=== PATIENT | female | born 1960 | race Caucasian/White ===

== ENCOUNTER 2018-06-10 10:35 | Emergency (ER) | payer OTHER ==
[~2018-06-10] VITALS: Ht 162.6 cm; Wt 77.1 kg
[2018-06-10] MEDS ORDERED: OLAN2.5 PO (10:47)
[2018-06-10] MEDS ORDERED: CLON.1 PO (10:47)
[2018-06-10] MEDS ORDERED: CYCL10 PO (10:48)
[2018-06-10] MEDS ORDERED: NAPR550 PO (10:49)
[2018-06-10] MEDS ORDERED: LEVSOD50 PO (10:49)
[2018-06-10] MEDS ORDERED: SUCR1 PO (10:50)
[2018-06-10] MEDS ORDERED: MIRT15 PO (10:50)
[2018-06-10] MEDS ORDERED: GABA300 PO (10:50)
[2018-06-10 12:06] LABS: BASOPHILS ABSOLUTE AUTO 0.03 K/mm3 (0.00-0.23); BASOPHILS PERCENT AUTO 0 % (0-2); EOSINOPHILS PERCENT AUTO 3 % (0-6); Hematocrit 43.9 % (33.0-51.0); Hemoglobin 14.5 g/dL (11.5-16.0); IMMATURE GRAN ABSOLUTE AUTO 0.02 K/mm3 (0.00-0.10); IMMATURE GRAN PERCENT AUTO 0 % (0-1); LYMPHOCYTES PERCENT AUTO 29 % (21-46); MONOCYTES ABSOLUTE AUTO 0.35 K/mm3 (0.16-1.47); MONOCYTES PERCENT AUTO 5 % (4-13); Mean Corpuscular HGB 31.9 pg (26.0-34.0); Mean Corpuscular Volume 97 fL (80-100); Mean Platelet Volume 9.1 fL (9.1-12.4); NEUTROPHILS ABSOLUTE AUTO 4.17 K/mm3 (1.96-9.15); NEUTROPHILS PERCENT AUTO 63 % (41-73); Platelet Count 351 K/mm3 (150-400); RDW Coefficient Variation 12.4 % (11.7-14.2); RDW Standard Deviation 44.5 fL (35.1-46.3); Red Blood Cell Count 4.55 M/mm3 (3.80-5.20); White Blood Cell Count 6.67 K/mm3 (4.00-11.30)
[2018-06-10 12:15] LABS: Alanine Aminotransfer (ALT/SGP 28 U/L (12-78); Albumin, Blood 3.5 g/dL (3.4-5.0); Albumin/Globulin Ratio 1.1 (0.8-1.8); Alk Phos 74 U/L (50-136); Anion Gap 7 mmol/L (6-16); Aspartate Aminotrans (AST/SGOT 19 U/L (12-37); Bilirubin, Total 0.5 mg/dL (0.1-1.0); Blood Urea Nitrogen 11 mg/dL (8-24); Bun/Creatinine Ratio 18.4 (12.0-20.0); CO2, Blood 23 mmol/L (21-32); Calcium, Blood 8.1 mg/dL (8.5-10.1); Chloride, Blood 112 mmol/L (98-108); Globulin, Blood 3.2 g/dL (2.2-4.0); Glomerular Filtration Rate >60 (60-); Glucose, Blood 102 mg/dL (70-99); Potassium, Blood 3.6 mmol/L (3.5-5.5); Sodium, Blood 142 mmol/L (136-145); Total Protein, Blood 6.7 g/dL (6.4-8.2)
[2018-06-10 13:57] LABS: Influenza A Negative (NEGATIVE); Influenza B Negative (NEGATIVE)
[2018-06-10] MEDS ORDERED: Loperamide2 MG PO (14:05)
[2018-06-10] MEDS ORDERED: KETO10 PO (14:05)
== END 2018-06-10 14:30 | disposition home or self-care (01) ==
LOC: ER 10:35
PROVIDERS: Physician Assistant
DX: A08.4 Viral intestinal infection, unspecified (principal); I10 Essential (primary) hypertension; E03.9 Hypothyroidism, unspecified; F17.210 Nicotine dependence, cigarettes, uncomplicated; Z79.899 Other long term (current) drug therapy
CPT/HCPCS: 80053; 85025; 87804; 96361; 96374; 99283-25; J1885; J7030

== ENCOUNTER 2018-11-23 15:30 | Emergency (ER) | payer OTHER ==
[~2018-11-23] VITALS: Ht 162.6 cm; Wt 81.7 kg
[~2018-11-23 15:30] MED LIST: CLON.1 PO; CYCL10 PO; GABA300 PO; KETO10 PO; LEVSOD50 PO; Loperamide2 MG PO; MIRT15 PO; NAPR550 PO; OLAN2.5 PO; SUCR1 PO
== END 2018-11-23 17:15 | disposition left against medical advice (07) ==
LOC: ER 15:30
DX: Z53.21 Procedure and treatment not carried out due to patient leaving prior to being seen by health care provider (principal)
CPT/HCPCS: 93005; 93010; 99283-25

== ENCOUNTER → 2020-01-02 | Outpatient (CLI) | payer OTHER ==
[2020-01-03 16:56] LABS: Adenovirus F 40/41 Not Detected (NOT DETECT); Astrovirus Not Detected (NOT DETECT); Campylobacter Sp Not Detected (NOT DETECT); Cryptosporidium Not Detected (NOT DETECT); Cyclospora Cayetanensis Not Detected (NOT DETECT); E. Coli O157 Not Detected (NOT DETECT); Entamoeba Histolytica Not Detected (NOT DETECT); Enteroaggregative E. coli-EAEC Not Detected (NOT DETECT); Enteropathogenic E. coli-EPEC Not Detected (NOT DETECT); Enterotoxigenic E. coli-ETEC Not Detected (NOT DETECT); Giardia Lamblia Not Detected (NOT DETECT); Norovirus GI/GII Not Detected (NOT DETECT); Plesiomonas Shigelloides Not Detected (NOT DETECT); Rotavirus A Not Detected (NOT DETECT); Salmonella Sp Not Detected (NOT DETECT); Sapovirus Not Detected (NOT DETECT); Shiga Toxin-prod E. coli-STEC Not Detected (NOT DETECT); Shigella/Enteroin E. coli-EIEC Not Detected (NOT DETECT); Vibrio Cholerae Not Detected (NOT DETECT); Vibrio Sp Not Detected (NOT DETECT); Yersinia Enterocolitica Not Detected (NOT DETECT)
== END | disposition home or self-care (01) ==
LOC: LAB 11:15 → LAB SHORT 11:15
PROVIDERS: Family Medicine
DX: R19.7 Diarrhea, unspecified (principal)
CPT/HCPCS: 0097U; 84376; 89055

== ENCOUNTER 2020-02-13 06:56 | Observation (INO) | payer OTHER ==
[~2020-02-13] VITALS: Ht 162.6 cm; Wt 83.4 kg
[~2020-02-13 06:56] MED LIST changes: +LEVSOD25 PO; -LEVSOD50 PO
[2020-02-13 07:46] LABS: BASOPHILS ABSOLUTE AUTO 0.03 K/mm3 (0.00-0.23); BASOPHILS PERCENT AUTO 0 % (0-2); EOSINOPHILS ABSOLUTE AUTO 0.26 K/mm3 (0.00-0.68); EOSINOPHILS PERCENT AUTO 3 % (0-6); Hematocrit 40.2 % (33.0-51.0); IMMATURE GRAN ABSOLUTE AUTO 0.02 K/mm3 (0.00-0.10); IMMATURE GRAN PERCENT AUTO 0 % (0-1); LYMPHOCYTES ABSOLUTE AUTO 2.15 K/mm3 (0.84-5.20); LYMPHOCYTES PERCENT AUTO 22 % (21-46); MONOCYTES ABSOLUTE AUTO 0.46 K/mm3 (0.16-1.47); MONOCYTES PERCENT AUTO 5 % (4-13); Mean Corpuscular HGB 31.8 pg (26.0-34.0); Mean Corpuscular HGB Conc 32.3 g/dL (31.5-36.5); Mean Corpuscular Volume 98 fL (80-100); Mean Platelet Volume 9.3 fL (9.1-12.4); NEUTROPHILS ABSOLUTE AUTO 6.81 K/mm3 (1.96-9.15); NEUTROPHILS PERCENT AUTO 70 % (41-73); Platelet Count 250 K/mm3 (150-400); RDW Coefficient Variation 13.4 % (11.7-14.2); RDW Standard Deviation 48.8 fL (35.1-46.3); Red Blood Cell Count 4.09 M/mm3 (3.80-5.20); White Blood Cell Count 9.73 K/mm3 (4.00-11.30)
[2020-02-13 08:11] LABS: Alanine Aminotransfer (ALT/SGP 145 U/L (12-78); Albumin, Blood 3.2 g/dL (3.4-5.0); Albumin/Globulin Ratio 1.1 (0.8-1.8); Alk Phos 113 U/L (50-136); Anion Gap 3 mmol/L (6-16); Aspartate Aminotrans (AST/SGOT 82 U/L (12-37); Bilirubin, Total 0.3 mg/dL (0.1-1.0); Blood Urea Nitrogen 14 mg/dL (8-24); Bun/Creatinine Ratio 23.4 (12.0-20.0); CO2, Blood 24 mmol/L (21-32); Calcium, Blood 7.7 mg/dL (8.5-10.1); Chloride, Blood 115 mmol/L (98-108); Globulin, Blood 2.8 g/dL (2.2-4.0); Glomerular Filtration Rate >60 (60-); Glucose, Blood 108 mg/dL (70-99); Potassium, Blood 3.7 mmol/L (3.5-5.5); Sodium, Blood 142 mmol/L (136-145); Troponin I 0.166 ng/mL (0.000-0.040)
[2020-02-13 10:16] LABS: Prothrombin Time Results 10.7 Sec (9.7-11.5)
--- NOTE | 2020-02-13 11:59 | NUR ---
Echocardiogram completed.
[2020-02-13] MEDS ORDERED: LATUDA20 MG PO (12:20)
--- NOTE | 2020-02-13 17:51 | NUR ---
SHIFT SUMMARY PT ALERT AND ORIENTED. VS STABLE. O2 SATS REMAIN ABOVE 90% ON RA. BP STABLE. PT DENIES ANY CP OR PRESSURE. HEPARIN GTT INFUSING PER ORDERS. PLAN TO BE NPO AT MIDNIGHT FOR ANGIOGRAM IN THE AM. PT INDEPENDENT IN THE ROOM. WILL CONTINUE TO MONITOR AND REPORT TO ONCOMING RN. CALL LIGHT IN REACH.
--- NOTE | 2020-02-13 19:29 | NUR ---
PT ALERT AND ORIENTED. PT NPO AFTER MIDNIGHT FOR SCHEDULED ANGIOGRAM. VS STABLE. O2 SAT ABOVE 92% ON RA. HEPARIN INFUSING PER EMAR. PT REPORTS TO HAVE NO CHEST PAIN AT THIS TIME. PT ABLE TO AMBULATE ON OWN IN ROOM. SHIFT REPORT GIVEN TO ONCOMING NURSE. CALL LIGHT IN REACH.
[2020-02-14 02:11] LABS: Alanine Aminotransfer (ALT/SGP 126 U/L (12-78); Albumin, Blood 3.1 g/dL (3.4-5.0); Albumin/Globulin Ratio 0.9 (0.8-1.8); Alk Phos 112 U/L (50-136); Anion Gap 4 mmol/L (6-16); Aspartate Aminotrans (AST/SGOT 43 U/L (12-37); Bilirubin, Total 0.4 mg/dL (0.1-1.0); Blood Urea Nitrogen 16 mg/dL (8-24); Bun/Creatinine Ratio 24.9 (12.0-20.0); CO2, Blood 29 mmol/L (21-32); Calcium, Blood 8.6 mg/dL (8.5-10.1); Chloride, Blood 108 mmol/L (98-108); Creatinine, Blood 0.64 mg/dL (0.40-1.00); Globulin, Blood 3.4 g/dL (2.2-4.0); Glomerular Filtration Rate >60 (60-); Glucose, Blood 160 mg/dL (70-99); Magnesium, Blood 1.8 mg/dL (1.6-2.4); Potassium, Blood 3.7 mmol/L (3.5-5.5); Sodium, Blood 141 mmol/L (136-145); Total Protein, Blood 6.5 g/dL (6.4-8.2)
--- NOTE | 2020-02-14 06:46 | NUR ---
LEFT FOR [facility]URE [facility] RN'S CAME AND TOOK PATIENT FOR PROCEDURE AT THIS TIME.
--- NOTE | 2020-02-14 07:27 | NUR ---
SHIFT SUMMARY NO ACUTE CHANGES T/O THE NIGHT. VITALS STABLE. NPO AFTER MIDNIGHT. PT DENIES C/P AND SOB. PT LEFT FOR PROCEDURE BEFORE 0600 MEDICATIONS. PT IS REQUESTING SHOWER UPON RETURING FROM PROCEDURE.
[2020-02-14 14:26] LABS: Magnesium, Blood 1.6 mg/dL (1.6-2.4); Potassium, Blood 3.1 mmol/L (3.5-5.5)
--- NOTE | 2020-02-14 17:49 | NUR ---
SHIFT SUMMARY PT ALERT AND ORIENTED. VS STABLE. O2 SATS REMAIN ABOVE 90% ON RA. HR NSR. PT DENIES ANY CP/PRESSURE. RIGHT RADIAL SITE WITH TEGADERM IN PLACE WITH NO SIGNS OF HEMATOMA, BRUISING, OR BLEEDING NOTED. ARM BOARD IN PLACE. RIGHT BRACHIAL SITE WITH TEGADERM IN PLACE WITH NO BLEEDING, HEMATOMA OR BRUISING NOTED. PT ANXIOUS THIS AFTERNOON AND DR. BARKER CALLED WITH NEW ORDERS. WILL CONTINUE TO MONITOR AND REPORT TO ONCOMING RN.
--- NOTE | 2020-02-14 18:32 | NUR ---
SHIFT REPORT PT IS ALERT AND ORIENTED. PT HAD ANGIOGRAM DONE THIS AM. R BRACHIAL SITE IS WNL. NO BRUISING OR HEMATOMA FORMATIOIN. R RADIAL SITE IS WNL. NO BRUISING OR HEMATOMA FORMATION. VS STABLE. PT ABOVE 92% ON RA. PT IS ANXIOUS T/O THE DAY. PHYSICIAN NOTIFIED. PATIENT MEDICATION PER EMAR. CALL LIGHT WITHIN REACH. WILL CONTINUE TO MONITOR.
[2020-02-15 05:04] LABS: Anion Gap 4 mmol/L (6-16); Blood Urea Nitrogen 21 mg/dL (8-24); Bun/Creatinine Ratio 31.2 (12.0-20.0); CO2, Blood 29 mmol/L (21-32); Calcium, Blood 8.3 mg/dL (8.5-10.1); Chloride, Blood 108 mmol/L (98-108); Creatinine, Blood 0.67 mg/dL (0.40-1.00); Glomerular Filtration Rate >60 (60-); Glucose, Blood 109 mg/dL (70-99); Magnesium, Blood 2.1 mg/dL (1.6-2.4); Potassium, Blood 3.4 mmol/L (3.5-5.5); Sodium, Blood 141 mmol/L (136-145)
--- NOTE | 2020-02-15 05:13 | NUR ---
SHIFT SUMMARY PT A&O; COMPLIANT W/ CARE; DENIES CP; VSS; NSR NOTED ON TELE; R RADIAL SITE W/ TEGADERM IN PLACE; ARM BOARD IN PLACE TO REMIND PT; O2 SATS >93 ON RA ON SECOND DIGIT OF R HAND; INDEPENDENT IN ROOM; AMBULATES TO BATHROOM W/ NO GAIT DISTURBANCES NOTED; PT SLEPT SEVERAL HOURS IN BETWEEN INTERVENTION; CALL LIGHT IN REACH; BED IN LOWEST POSITITION; WILL CONTINUE TO MONITOR CLOSELY UNTIL HAND OFF OT DAY SHIFT RN.
[2020-02-15] MEDS ORDERED: ASPI81CH PO (12:56)
[2020-02-15] MEDS ORDERED: LOSA25 PO (12:57)
[2020-02-15] MEDS ORDERED: METO25ER PO (13:01)
[2020-02-15] MEDS ORDERED: SPIR25 PO (13:08)
[2020-02-15] MEDS ORDERED: TORSE20 PO (13:09)
[2020-02-15] MEDS ORDERED: POTA10T PO (13:10)
--- NOTE | 2020-02-15 14:41 | NUR ---
PT DISCHARGED TO [facility] WITH DISCHARGE ORDERS. PT'S VITALS HAS BEEN STABLE FOR THE SHIFT, HRR NSR AT 70'S, SATS ABOVE 95% ON ROOMAIR, AFEBRILE. INDEPENDENT IN THE ROOM. RIGHT RADIAL AND BRACHIAL ACCESS SITE INTACT DRESSING REPLACED WITH NEW TRANSPARENT DRESSING SOME BRUISING PRESENT AROUND THE SITE. PT C/O MILD HEAD ACHE AND SOME NAUSEA AND WAS RELIEVED BY ZOFRAN AND TYLENOL. PT HAD A SHOWER PRIOR TO LEAVING. PT TO FOLLOW UP WITH PCP AND DR AGARWAL IN A WEEK. DISCHARGE TEACHING AND INSTRUCTIONS DISCLOSED WITH PT. PT SIGNED DISCHARGED CONSENT. ALL BELONGINGS SENT WITH PT. [facility] [employer] [facility] [employer]SE OPERATOR PT, PT ACCOMPANIED BY PCT FOR TRANSPORT.
== END 2020-02-15 14:33 | disposition home or self-care (01) ==
LOC: ER 06:56 → PCU 06:57
PROVIDERS: Emergency Medicine; Internal Medicine Cardiovascular Disease; ADMIT Internal Medicine
DX: R07.9 Chest pain, unspecified (principal); I11.0 Hypertensive heart disease with heart failure; I27.20 Pulmonary hypertension, unspecified; I42.9 Cardiomyopathy, unspecified; I50.31 Acute diastolic (congestive) heart failure; I42.8 Other cardiomyopathies; Z91.041 Radiographic dye allergy status; Z88.2 Allergy status to sulfonamides; Z91.018 Allergy to other foods; E03.9 Hypothyroidism, unspecified; F17.210 Nicotine dependence, cigarettes, uncomplicated; Z79.899 Other long term (current) drug therapy; Z79.82 Long term (current) use of aspirin
CPT/HCPCS: 36415; 70450; 71046; 80048; 80053; 83690; 83735; 83880; 84132; 84145; 84484; 85025; 85610; 85730; 93005; 93010; 93306; 93460; 96374; 96375; 99152; 99153; 99285-25; A9270; A9270-GY; C1769; C1894; J0171; J1170; J1200; J1644; J1720; J1940; J2250; J2405; J3010; J3475; J3490; J7030; J7040; J7512; Q9967

== ENCOUNTER 2020-05-29 07:07 | Day surgery (SDC) | payer OTHER ==
[~2020-05-29 07:07] MED LIST changes: +ASPI81CH PO; +COMBIVENT RESPIM4 G1 INH; +Gabapentin600 MG PO; +LATUDA20 MG PO; +LOSA25 PO; +METO25ER PO; +ONDA4ODT MM; +PANT40 PO; +POTA10T PO; +SPIR25 PO; +TORSE20 PO
== END 2020-05-29 22:40 | disposition home or self-care (01) ==
LOC: RAD 07:07
DX: M16.11 Unilateral primary osteoarthritis, right hip (principal); M24.851 Other specific joint derangements of right hip, not elsewhere classified
CPT/HCPCS: 20610; 73722; 77002; A9577; Q9967

== ENCOUNTER → 2020-06-18 | Outpatient (CLI) | payer OTHER | END | disposition home or self-care (01) | LOC: LAB SHORT 17:35 → LAB 17:35 | DX: J02.9 Acute pharyngitis, unspecified (principal) | CPT/HCPCS: 87081 ==

== ENCOUNTER 2020-07-19 15:44 | Emergency (ER) | payer OTHER ==
[~2020-07-19] VITALS: Ht 167.6 cm; Wt 83.9 kg
[2020-07-19 16:35] LABS: BASOPHILS ABSOLUTE AUTO 0.05 K/mm3 (0.00-0.23); BASOPHILS PERCENT AUTO 1 % (0-2); EOSINOPHILS ABSOLUTE AUTO 0.81 K/mm3 (0.00-0.68); EOSINOPHILS PERCENT AUTO 11 % (0-6); Hematocrit 50.9 % (33.0-51.0); Hemoglobin 16.6 g/dL (11.5-16.0); IMMATURE GRAN ABSOLUTE AUTO 0.01 K/mm3 (0.00-0.10); IMMATURE GRAN PERCENT AUTO 0 % (0-1); LYMPHOCYTES ABSOLUTE AUTO 2.26 K/mm3 (0.84-5.20); LYMPHOCYTES PERCENT AUTO 29 % (21-46); MONOCYTES PERCENT AUTO 5 % (4-13); Mean Corpuscular HGB 30.9 pg (26.0-34.0); Mean Corpuscular HGB Conc 32.6 g/dL (31.5-36.5); Mean Corpuscular Volume 95 fL (80-100); Mean Platelet Volume 8.9 fL (9.1-12.4); NEUTROPHILS ABSOLUTE AUTO 4.18 K/mm3 (1.96-9.15); NEUTROPHILS PERCENT AUTO 54 % (41-73); Platelet Count 311 K/mm3 (150-400); RDW Coefficient Variation 12.5 % (11.7-14.2); Red Blood Cell Count 5.37 M/mm3 (3.80-5.20); White Blood Cell Count 7.71 K/mm3 (4.00-11.30)
[2020-07-19 16:51] LABS: Alanine Aminotransfer (ALT/SGP 39 U/L (12-78); Albumin, Blood 3.9 g/dL (3.4-5.0); Albumin/Globulin Ratio 1.1 (0.8-1.8); Alk Phos 81 U/L (50-136); Anion Gap 3 mmol/L (6-16); Aspartate Aminotrans (AST/SGOT 42 U/L (12-37); Bilirubin, Total 0.5 mg/dL (0.1-1.0); Blood Urea Nitrogen 12 mg/dL (8-24); Bun/Creatinine Ratio 17.9 (12.0-20.0); CO2, Blood 27 mmol/L (21-32); Chloride, Blood 113 mmol/L (98-108); Creatinine, Blood 0.67 mg/dL (0.40-1.00); Globulin, Blood 3.6 g/dL (2.2-4.0); Glomerular Filtration Rate >60 (60-); Glucose, Blood 111 mg/dL (70-99); Potassium, Blood 4.9 mmol/L (3.5-5.5); Sodium, Blood 143 mmol/L (136-145); Total Protein, Blood 7.5 g/dL (6.4-8.2)
[2020-07-19] MEDS ORDERED: BENZ100A PO (21:35)
== END 2020-07-19 22:27 | disposition home or self-care (01) ==
LOC: ER 15:44
PROVIDERS: Emergency Medicine
DX: J20.9 Acute bronchitis, unspecified (principal); R11.0 Nausea; R19.7 Diarrhea, unspecified; E03.9 Hypothyroidism, unspecified; I11.0 Hypertensive heart disease with heart failure; I50.9 Heart failure, unspecified; F17.210 Nicotine dependence, cigarettes, uncomplicated; Z20.828 Contact with and (suspected) exposure to other viral communicable diseases; Z79.82 Long term (current) use of aspirin; Z79.899 Other long term (current) drug therapy; Z88.2 Allergy status to sulfonamides; Z91.018 Allergy to other foods; Z91.041 Radiographic dye allergy status
CPT/HCPCS: 71045; 80053; 85025; 94640; 99284-25; U0004

== ENCOUNTER 2020-08-20 03:18 | Emergency (ER) | payer OTHER ==
[~2020-08-20] VITALS: Ht 162.6 cm; Wt 81.7 kg
[~2020-08-20 03:18] MED LIST changes: +BENZ100A PO
[2020-08-20] MEDS ORDERED: DELTASONE20 MG PO (06:05)
== END 2020-08-20 06:20 | disposition home or self-care (01) ==
LOC: ER 03:18
DX: J44.1 Chronic obstructive pulmonary disease with (acute) exacerbation (principal); I11.0 Hypertensive heart disease with heart failure; I50.9 Heart failure, unspecified; E03.9 Hypothyroidism, unspecified; Z91.018 Allergy to other foods; Z88.2 Allergy status to sulfonamides; Z91.041 Radiographic dye allergy status; Z79.899 Other long term (current) drug therapy
CPT/HCPCS: 71045; 94644; 99285-25; J7512

== ENCOUNTER 2020-11-23 04:44 | Emergency (ER) | payer OTHER ==
[~2020-11-23] VITALS: Ht 162.6 cm; Wt 79.4 kg
[~2020-11-23 04:44] MED LIST changes: +DELTASONE20 MG PO
== END 2020-11-23 05:01 | disposition home or self-care (01) ==
LOC: ER 04:44
DX: M54.9 Dorsalgia, unspecified (principal); M79.10 Myalgia, unspecified site; E03.9 Hypothyroidism, unspecified; Z88.2 Allergy status to sulfonamides; Z91.018 Allergy to other foods; Z91.041 Radiographic dye allergy status; Z79.52 Long term (current) use of systemic steroids
CPT/HCPCS: 96372; 99283-25; J1885

== ENCOUNTER 2021-01-29 10:46 | Emergency (ER) | payer OTHER ==
[~2021-01-29] VITALS: Ht 162.6 cm; Wt 78.5 kg
[2021-01-29] MEDS ORDERED: KLOR-CON 1010 ME2 PO (11:00)
[2021-01-29] MEDS ORDERED: Chantix1 MG PO (11:18)
[2021-01-29] MEDS ORDERED: Ultram50 MG PO (11:18)
== END 2021-01-29 11:23 | disposition home or self-care (01) ==
LOC: ER 10:46
DX: M25.551 Pain in right hip (principal); G89.29 Other chronic pain; I11.0 Hypertensive heart disease with heart failure; I50.9 Heart failure, unspecified; F17.200 Nicotine dependence, unspecified, uncomplicated; E03.9 Hypothyroidism, unspecified; Z88.2 Allergy status to sulfonamides; Z91.041 Radiographic dye allergy status; Z91.018 Allergy to other foods; Z79.899 Other long term (current) drug therapy
CPT/HCPCS: 99283; A9270

== ENCOUNTER → 2021-11-11 | Outpatient (CLI) | payer OTHER ==
[~2021-11-11] MED LIST changes: +Chantix1 MG PO; +KLOR-CON 1010 ME2 PO; +Ultram50 MG PO
[2021-11-12 10:11] LABS: Candida species (DNA Probe) Negative (NEGATIVE); G. vaginalis (DNA Probe) Negative (NEGATIVE); T. vaginalis (DNA Probe) Negative (NEGATIVE)
[2021-11-13 02:07] LABS: CHLAMYDIA TRACHOMATIS, NAA Negative (Negative); HPV 16 Negative (Negative); HPV 18 Negative (Negative); HPV OTHER HR TYPES Negative (Negative)
== END | disposition home or self-care (01) ==
LOC: LAB SHORT 12:18
PROVIDERS: Family Medicine
DX: Z01.419 Encounter for gynecological examination (general) (routine) without abnormal findings (principal); Z11.3 Encounter for screening for infections with a predominantly sexual mode of transmission; L29.3 Anogenital pruritus, unspecified
CPT/HCPCS: 87480; 87510; 87660

== ENCOUNTER → 2022-02-21 | Outpatient (CLI) | payer OTHER ==
[2022-02-24 05:08] LABS: COTININE Negative ng/mL (Cutoff=300)
== END | disposition home or self-care (01) ==
LOC: LAB SHORT 11:40 → LAB 11:40
PROVIDERS: Family Medicine
DX: F17.211 Nicotine dependence, cigarettes, in remission (principal)

== ENCOUNTER 2022-11-08 22:17 | Inpatient (IN) | payer OTHER ==
[~2022-11-08] VITALS: Ht 162.6 cm; Wt 85.0 kg
[~2022-11-08 22:17] MED LIST changes: +IBUP600 PO; +Prednisone20 MG PO
[2022-11-08 22:35] LABS: Hematocrit 44.9 % (33.0-51.0); Hemoglobin 14.5 g/dL (11.5-16.0); Mean Corpuscular HGB Conc 32.3 g/dL (31.5-36.5); Mean Corpuscular Volume 96 fL (80-100); Mean Platelet Volume 8.8 fL (9.1-12.4); Platelet Count 408 K/mm3 (150-400); RDW Coefficient Variation 13.3 % (11.7-14.2); RDW Standard Deviation 47.6 fL (35.1-46.3); Red Blood Cell Count 4.67 M/mm3 (3.80-5.20); White Blood Cell Count 20.27 K/mm3 (4.00-11.30)
[2022-11-08 22:41] LABS: PCO2 Arterial 56.4 mmHg (35-45); PO2 Arterial 356 mmHg (80-100)
[2022-11-08 22:55] LABS: Bun/Creatinine Ratio 14.6 (12.0-20.0); Calcium, Blood 9.1 mg/dL (8.5-10.1); Creatinine, Blood 0.68 mg/dL (0.40-1.00); Magnesium, Blood 2.1 mg/dL (1.6-2.4); Potassium, Blood 3.6 mmol/L (3.5-5.5)
[2022-11-08 23:07] LABS: BASOPHILS PERCENT MAN 0 % (0-2); EOSINOPHILS ABSOLUTE MAN 1.62 K/mm3 (0.00-0.68); EOSINOPHILS PERCENT MAN 8 % (0-6); LYMPHOCYTES % ATYPICAL MANUAL 1 % (0-0); LYMPHOCYTES ABSOLUTE MAN 6.28 K/mm3 (0.84-5.20); LYMPHOCYTES PERCENT MAN 30 % (21-46); MONOCYTES ABSOLUTE MAN 1.82 K/mm3 (0.16-1.47); MONOCYTES PERCENT MAN 9 % (4-13); NEUTROPHILS ABSOLUTE MAN 10.54 K/mm3 (1.96-9.15); SEG NEUTROPHILS PERCENT MAN 52 % (41-73); TOTAL CELLS COUNTED 100
[2022-11-08 23:23] LABS: Source, Urine Foley catheter
[2022-11-08 23:27] LABS: Bilirubin, Urine Neg (Neg); Blood, Urine Neg (Neg); Glucose Qualitative, Urine 3+ (Neg); Ketones, Urine Neg (Neg); Leukocyte Esterase, Urine Neg (Neg); Nitrite, Urine Neg (Neg); Protein, Urine 2+ (Neg); Specific Gravity, Urine 1.025 (1.003-1.022); Urobilinogen, Urine NORM (Normal)
[2022-11-08 23:28] LABS: Influenza A, PCR NEGATIVE (NEGATIVE); Influenza B, PCR NEGATIVE (NEGATIVE); Resp Syncytial Virus, PCR NEGATIVE (NEGATIVE); SARS-Cov-2 (COVID-19) PCR, MMC NEGATIVE (NEGATIVE)
[2022-11-08 23:36] LABS: Appearance, Urine Clear (Clear); Color, Urine Pale Yellow (P-Yellow)
[2022-11-08 23:37] LABS: Bacteria Not Seen /hpf; Red Blood Cells, Urine Not Seen /hpf (0-2); Squamous Epithelial Cells Not Seen /hpf (Few); White Blood Cells, Urine 0-2 /hpf (0-5)
[2022-11-09 04:52] LABS: BASOPHILS ABSOLUTE AUTO 0.01 K/mm3 (0.00-0.23); BASOPHILS PERCENT AUTO 0 % (0-2); EOSINOPHILS PERCENT AUTO 0 % (0-6); Hematocrit 38.5 % (33.0-51.0); Hemoglobin 12.4 g/dL (11.5-16.0); IMMATURE GRAN ABSOLUTE AUTO 0.05 K/mm3 (0.00-0.10); IMMATURE GRAN PERCENT AUTO 1 % (0-1); LYMPHOCYTES ABSOLUTE AUTO 0.36 K/mm3 (0.84-5.20); LYMPHOCYTES PERCENT AUTO 3 % (21-46); MONOCYTES ABSOLUTE AUTO 0.22 K/mm3 (0.16-1.47); MONOCYTES PERCENT AUTO 2 % (4-13); Mean Corpuscular HGB 30.5 pg (26.0-34.0); Mean Corpuscular HGB Conc 32.2 g/dL (31.5-36.5); Mean Corpuscular Volume 95 fL (80-100); Mean Platelet Volume 9.3 fL (9.1-12.4); NEUTROPHILS ABSOLUTE AUTO 10.44 K/mm3 (1.96-9.15); NEUTROPHILS PERCENT AUTO 94 % (41-73); Platelet Count 265 K/mm3 (150-400); RDW Coefficient Variation 13.5 % (11.7-14.2); RDW Standard Deviation 47.2 fL (35.1-46.3); Red Blood Cell Count 4.07 M/mm3 (3.80-5.20); White Blood Cell Count 11.08 K/mm3 (4.00-11.30)
[2022-11-09 05:17] LABS: Bilirubin, Total 0.3 mg/dL (0.1-1.0); Bun/Creatinine Ratio 17.6 (12.0-20.0); Calcium, Blood 8.4 mg/dL (8.5-10.1); Creatinine, Blood 0.62 mg/dL (0.40-1.00); Globulin, Blood 3.1 g/dL (2.2-4.0); Total Protein, Blood 6.1 g/dL (6.4-8.2)
--- NOTE | 2022-11-09 07:24 | NUR ---
Received report from NOC RN. Patient is intubated and sedated with 7.5 ET and is 24 cm at teeth, and vent settings of AC/VC+ 18/350/30/8 amnd sats 99%. She has 20 ga LACinfusing levophed at 6 mcg, NS at 100 ml/hr, she also has 18ga IV RAC infusing Propofol at 50 mcg/kg/min and versed at 2 mg/hr. She has 16 Fr temp hanley draining to gravity yellow urine. Skin assessment WNL's, trace edema to LE.
--- NOTE | 2022-11-09 09:40 | NUR ---
No changes to vent settings or gtts. Placed PICC line in ARACELI and changes gtts to PICC line, Pulled 20ga IV field start in LAC. No other significant changes.
--- NOTE | 2022-11-09 12:22 | NUR ---
Dr Villalba in room and made some adjustments to PEEp 5 and 25% FiO2 and when he came back he placed on spon. PS10 and she was breathing in the 40 RR and increased propofol back to 50mcg/kg/min and she is relaxed and RR 20's and sats have always been over 90%. Versed has been off for three hours and propofol was turned down to 30 mcg/kg/min at 1000. Rt doing A&A.
--- NOTE | 2022-11-09 14:30 | NUR ---
Dr Villalba back to assess spon. and she has been really wheezy and placed her back on AC/VC+ 18/350/30/5 and sats >90%. Versed remains off and propofol that had been reduced to 30 mcg/kg/min during sedation vacation is back up to 50 mcg/kg/min and NS TKO. Levophed continues at 6 mcg/min for systolics in the very low 100's and MAPS >65.
--- NOTE | 2022-11-09 17:26 | NUR ---
Patient remains intubated on original settings 7.5 ET and 24 cm at teeth with settings of 18/350/30/5 with sats >90%. She was very agitated for about 30 minutes starting at 1615 and pulled OG and trying to extubate herself and was not understanding reasoning or able to redirect. Increased Propofol to 60 mcg/kg/patricia nd had no success. Charge nurse called Dr Villalba for me and got order for Ketamine. Started Ketamine at 0.3 mg/kg/hr at a adjusted rate of 30ml/hr. Port Engineer student supervised replacing OG and securment to ET. She remains in bilateral soft wrist restraints. She has been calm since starting ketamine and reduced Propofol to 50mcg/kg/min. She had smear of stool and cleaned her up and changed linen.
--- NOTE | 2022-11-09 18:58 | NUR ---
Wasted 35 ml of versed with Lonnie Finn RN
[2022-11-10 04:14] LABS: Albumin/Globulin Ratio 0.9 (0.8-1.8); Bilirubin, Total 0.2 mg/dL (0.1-1.0); Bun/Creatinine Ratio 18.9 (12.0-20.0); Calcium, Blood 8.3 mg/dL (8.5-10.1); Creatinine, Blood 0.53 mg/dL (0.40-1.00); Globulin, Blood 3.3 g/dL (2.2-4.0); Potassium, Blood 4.4 mmol/L (3.5-5.5); Total Protein, Blood 6.3 g/dL (6.4-8.2)
[2022-11-10 04:30] LABS: BASOPHILS ABSOLUTE AUTO 0.01 K/mm3 (0.00-0.23); BASOPHILS PERCENT AUTO 0 % (0-2); EOSINOPHILS PERCENT AUTO 0 % (0-6); Hematocrit 38.4 % (33.0-51.0); Hemoglobin 12.8 g/dL (11.5-16.0); IMMATURE GRAN ABSOLUTE AUTO 0.07 K/mm3 (0.00-0.10); IMMATURE GRAN PERCENT AUTO 1 % (0-1); LYMPHOCYTES ABSOLUTE AUTO 0.71 K/mm3 (0.84-5.20); LYMPHOCYTES PERCENT AUTO 6 % (21-46); MONOCYTES ABSOLUTE AUTO 0.19 K/mm3 (0.16-1.47); MONOCYTES PERCENT AUTO 2 % (4-13); Mean Corpuscular HGB 31.1 pg (26.0-34.0); Mean Corpuscular HGB Conc 33.3 g/dL (31.5-36.5); Mean Corpuscular Volume 93 fL (80-100); Mean Platelet Volume 8.8 fL (9.1-12.4); NEUTROPHILS ABSOLUTE AUTO 10.06 K/mm3 (1.96-9.15); NEUTROPHILS PERCENT AUTO 91 % (41-73); Platelet Count 258 K/mm3 (150-400); RDW Standard Deviation 47.7 fL (35.1-46.3); Red Blood Cell Count 4.12 M/mm3 (3.80-5.20); White Blood Cell Count 11.04 K/mm3 (4.00-11.30)
--- NOTE | 2022-11-10 08:00 | NUR ---
PT REMAINS INTUBATED, SEDATED, AND RESTRAINED. PT BECOMES AGITATED VERY EASILY WITH MINIMAL STIMULI. PRECEDEX DRIP TITRATED UP T 1.4 MCG/KG/MIN AND PT MED WITH ATIVAN 4 MG IVP X 1. WITH AGIATATION, PT PULLS ON RESTRAINTS, SHAKES HER HEAD "NO", SHE TRIES TO TALK AROUND ETT, SHE KICKS HER LEGS, AND SITS UP IN THE BED. IN ADDITION, LUNGS BECOME WHEEZY THROUGH OUT WITH AGITATION. LUNGS AUSCULTATED PRIOR TO PT BECOMING AGITATED AND DIMINISHED THROUGH OUT R>L. VENT CURRENTLY ON PS 12/5 WITH FIO2 30% AND SATS>90% WHEN PT NOT AGITATED. SATS TO 85% WITH AGITATION. ETT SUCTION PRODUCTIVE OF MODERATE TO LARGE AMOUNT OF THICK, CORBETT SECRETIONS. ECG SHOWS SR WITH RATE 70'S. MAP TRENDING 70-80'S. NO NOTED EDEMA. DP/PT PULSES 2+. OGT TO LIS WITH MODERATE AMOUNT OF DARK, BROWN LIQUID DRAINAGE. PROTONIX DRIP INFUSING @ 8 MG=10 CC/HR. LAMA TO BSD WITH SMALL AMOUNT OF DARK, YELLOW URINE TO UROMETER. SKIN C/D/I. NO NOTED SKIN BREAKDOWN.
--- NOTE | 2022-11-10 09:40 | NUR ---
PT SITTING UP IN BED, PULLING ON RESTRAINTS, ATTEMPTING TO SPEAK AROUND ETT, AND KICKING HER LEGS. MED WITH ATIVAN [address] GUERIN IN TO SEE PT AND FULL UPDATE GIVEN. PROPOFOL DRIP RE-STARTED @ 50 MCG/KG/MIN AND PREDEDEX DRIP DECREASED TO 0.7 MCG/KG/MIN. VENT SETTINGS CHANGED TO AC/VC+16, TV 350, PEEP 5, FI02 30%. LUNGS AGAIN WHEEZY THROUGH OUT WITH AGITATION. ETT SUCTION PROCUCTIVE OF LARGE AMOUNT OF THICK, CORBETT SECRETIONS.
--- NOTE | 2022-11-10 12:00 | NUR ---
PT RESTS QUIETLY WHEN NOT DISTURBED ON PRECEDEX @ 0.7 MCG/KG/MIN AND PROPOFOL @ 50 MCG/KG/MIN. ONCE PT STIMULATED IN ANY WAY, SHE BECOMES EXTREMEMLY AGITATED. PT PULLS ON RESTRAINTS, MOVES HER HEAD BACK AND FORTH IN ATTEMPT TO PREVENT ORAL CARE, AND SHE SITS UP IN BED. MED WITH ATIVAN 2 MG IVP X 1 AND FENTANYL 50 MCG IVP X 1 FOR CPOT 8. ECG SHOWS SR WITH RATE 70-80'S. MAP TRENDING 70'S. LUNGS DIMINISHED T/O R>L-NO WHEEZES AUSCULTATED WHEN PT NOT AGITATED. NO VENT CHANGES. MAINTAINS SATS>90% ON FIO2 30%. ETT SUCTION PRODUCTIVE OF MODERATE AMOUNT OF THICK, CORBETT MUCUS PLUGS-SPUTUM SENT. DIETARY CONSULT PLACED-PLAN TO START TUBE FEEDS LATER TODAY. LAMA OUTPUT ONLY 150 CC SO FAR THIS SHIFT.
--- NOTE | 2022-11-10 14:00 | NUR ---
VHP STARTED @ 25 CC/HR WITH H20 30 CC EVERY 4 HOURS. GOAL RATE FOR TF 45 CC/HR.
--- NOTE | 2022-11-10 16:00 | NUR ---
PT RESTS QUIETLY LONG NOT DISTURBED. SEDATION LEVEL DIFFICULT TO PREDICT. PROPOFOL @ 50 MCG/KG/MIN AND PRECEDEX @ 0.7 MCG/KG/MIN-FENTANYL AND ATIVAN GIVEN FOR PAIN/AGITATION/SEDATION ADJUNCT. VSS-MAP TRENDING 70'S. MAINTAINS SATS>90% WHEN NOT AGITATED. PT TOLERATING TUBE FEEDING WELL @ 25 CC/HR. DECREASED URINE OUTPUT CONTINUES.
--- NOTE | 2022-11-10 18:09 | NUR ---
SEDATION LEVEL MUCH MORE PREDICTABLE WITH PROPOFOL @ 50 MCG/KG/MIN AND PRECEDEX 0.7 MCG/KG/MIN. PT HAS BEEN MEDICATED SEVERAL TIMES WITH ATIVAN AND FENTANYL FOR AGITATION & PAIN/SEDATION ADJUNCT. ECG CONTINUES SR WITH RATE 70'S. MAP TRENDING 70'S. PT HANDS ARE SWOLLEN THIS PM. PT HAS SEVERAL RINGS THAT NEED TO BED REMOVED-DONOR TECHNICIAN TO ATTEMPT TO REMOVED THEM.MAINTAINS SATS>90% ON FIO2 30%-NO VENT CHANGES. PT TOLERATING OGTF WELL @ 25 CC/HR-WILL ADVANCE TOLERATED. URINE OUTPUT ONLY 300 CC THIS SHIFT.
--- NOTE | 2022-11-10 19:30 | NUR ---
ASSUMED CARE PATIENT INTUBATED/SEDATED (PROPOFOL/PRECEDEX) VS STABLE. TUBE FEED PATENT. LAMA PATENT. NO FAMILY AT BEDSIDE.
[2022-11-11 04:32] LABS: BASOPHILS ABSOLUTE AUTO 0.01 K/mm3 (0.00-0.23); BASOPHILS PERCENT AUTO 0 % (0-2); EOSINOPHILS ABSOLUTE AUTO 0.02 K/mm3 (0.00-0.68); EOSINOPHILS PERCENT AUTO 0 % (0-6); Hematocrit 37.6 % (33.0-51.0); Hemoglobin 12.4 g/dL (11.5-16.0); IMMATURE GRAN ABSOLUTE AUTO 0.07 K/mm3 (0.00-0.10); IMMATURE GRAN PERCENT AUTO 1 % (0-1); LYMPHOCYTES ABSOLUTE AUTO 0.64 K/mm3 (0.84-5.20); LYMPHOCYTES PERCENT AUTO 7 % (21-46); MONOCYTES ABSOLUTE AUTO 0.27 K/mm3 (0.16-1.47); MONOCYTES PERCENT AUTO 3 % (4-13); Mean Corpuscular HGB 30.9 pg (26.0-34.0); Mean Corpuscular Volume 94 fL (80-100); Mean Platelet Volume 9.1 fL (9.1-12.4); NEUTROPHILS ABSOLUTE AUTO 7.62 K/mm3 (1.96-9.15); NEUTROPHILS PERCENT AUTO 88 % (41-73); Platelet Count 279 K/mm3 (150-400); RDW Coefficient Variation 14.5 % (11.7-14.2); RDW Standard Deviation 50.5 fL (35.1-46.3); Red Blood Cell Count 4.01 M/mm3 (3.80-5.20); White Blood Cell Count 8.63 K/mm3 (4.00-11.30)
--- NOTE | 2022-11-11 06:18 | NUR ---
PATIENT REMAINS INTUBATED AND SEDATED. ABLE TO WEAN PROPOFOL TO 35MG/KG/MIN. CONTINUES ON PRECEDEX AND PROTONIX. TUBE FEED 35ML/HR.
[2022-11-11 06:35] LABS: Albumin, Blood 2.8 g/dL (3.4-5.0); Albumin/Globulin Ratio 0.9 (0.8-1.8); Bilirubin, Total 0.1 mg/dL (0.1-1.0); Calcium, Blood 8.4 mg/dL (8.5-10.1); Creatinine, Blood 0.55 mg/dL (0.40-1.00); Globulin, Blood 3.2 g/dL (2.2-4.0); Magnesium, Blood 2.5 mg/dL (1.6-2.4); Phosphorus, Blood 2.3 mg/dL (2.5-4.9); Potassium, Blood 3.8 mmol/L (3.5-5.5)
--- NOTE | 2022-11-11 08:00 | NUR ---
PT REMAINS INTUBATED, MECHANICALLY VENTILATED, SEDATED AND RESTRAINED. PT BECAME VERY AGITATED WHEN RN WAS CHECKING PUPILS AND BEGINNING AM ASSESSMENT-PROPOFOL @ 35 MCG/KG/MIN ADN PRECEDEX @ 0.7 MCG/KG/MIN AT THAT TIME. PT PULLS ON RESTRAINTS, KICKS HER LEGS, AND THRASHES HER HEAD BACK AND FORTH ON THE PILLOW. WITH THE THRASHING ETT CUFF LEAK NOTED. CUFF LEAK APPEARS TO BE POSITIONAL. RT FLAVIO IS AWARE. PT MED WITH ATIVAN 4 MG IVP X 1 FOR AGITATION AND PROPOFOL DRIP TITRATED UP TO 50 MCG/KG/MIN. ECG SHOWS SR WITH RATE 70-80'S. MAP TRENDING 70'S. GENERALIZED EDEMA NOTED-PARTICULARLY TO HANDS. LUNGS DIMINISHED THROUGH OUT R>L. VENT: AC/VC+ 16, TV 350, PEEP 5, FIO2 30% SATS>90% ETT SUCTION PRODUCTIVE OF A LARGE AMOUNT OF THICK, YELLOW SPUTUM. PT TOLERATING OGTF WELL @ GOAL OF 45 CC/HR. PASSING FLATUS, BUT NO BM. LAMA TO BSD WITH SMALL AMOUNT OF DARK, YELLOW URINE TO UROMETER-PT URINE OUTPUT HAS BEEN DECREASED FOR THE LAST 24 HOURS- ONLY 550 OUT. WILL MONITOR. SKIN C/D/I NO NOTED SKIN BREAKDOWN.
--- NOTE | 2022-11-11 12:00 | NUR ---
PT RESTS QUIETLY ON THE VENT WHEN NOT DISTURBED. VSS. LUNGS COARSE TO LEFT UPPER LOBE, AND DIMINISHED TO BASES AND THROUGH OUT THE RIGHT. MAINTAINS SATS>90% ON FIO2 30%. ETT SUCTION CONTINUES TO BE PRODUCTIVE OF MODERATE TO LARGE AMOUNT OF THICK, YELLOW SPUTUM. OGTF VHP RATE CHANGED TO 15 CC//HR WITH FLUSH 180 CC EVERY 2 HOURS PER DO, DIRECTOR OF SUSTAINABLE DESIGN. CBG 122.
--- NOTE | 2022-11-11 16:00 | NUR ---
PT CONTINUES TO REST QUIETLY ON THE VENT-ON PROPOFOL @ 50 MCG/KG/MIN AND PRECEDEX @ 0.7 MCG/KG/MIN. VS REMAIN STABLE. NO VENT CHANGES. MAINTAINS SATS>90% ON FIO2 30%. ETT SUCTION CONTINUES TO BE PRODUCTIVE OF MODERATE TO LARGE AMOUNT OF THICK, YELLOW SPUTUM. PT TOLERATING TF WELL. URINE OUTPUT STILL DECREASED.
--- NOTE | 2022-11-11 18:28 | NUR ---
VS REMAIN STABLE. PT RESTING QUIETLY ON THE VENT. PROPOFOL TITRATED DOWN TO 40 MCG/KG/MIN. PRECEDEX CONTINUES @ 0.7 MCG/KG/MIN. MAINTAINS SATS>90% ON FIO2 30%. NO VENT CHANGES. INTAKE 1504 VS. 500 CC OUT THIS SHIFT.
[2022-11-12 04:25] LABS: BASOPHILS ABSOLUTE AUTO 0.01 K/mm3 (0.00-0.23); BASOPHILS PERCENT AUTO 0 % (0-2); EOSINOPHILS PERCENT AUTO 0 % (0-6); Hematocrit 36.2 % (33.0-51.0); Hemoglobin 12.1 g/dL (11.5-16.0); IMMATURE GRAN ABSOLUTE AUTO 0.09 K/mm3 (0.00-0.10); IMMATURE GRAN PERCENT AUTO 1 % (0-1); LYMPHOCYTES ABSOLUTE AUTO 0.81 K/mm3 (0.84-5.20); LYMPHOCYTES PERCENT AUTO 9 % (21-46); MONOCYTES ABSOLUTE AUTO 0.29 K/mm3 (0.16-1.47); MONOCYTES PERCENT AUTO 3 % (4-13); Mean Corpuscular HGB 31.1 pg (26.0-34.0); Mean Corpuscular HGB Conc 33.4 g/dL (31.5-36.5); Mean Corpuscular Volume 93 fL (80-100); Mean Platelet Volume 8.9 fL (9.1-12.4); NEUTROPHILS ABSOLUTE AUTO 7.88 K/mm3 (1.96-9.15); NEUTROPHILS PERCENT AUTO 87 % (41-73); Platelet Count 224 K/mm3 (150-400); RDW Coefficient Variation 14.7 % (11.7-14.2); RDW Standard Deviation 50.8 fL (35.1-46.3); Red Blood Cell Count 3.89 M/mm3 (3.80-5.20); White Blood Cell Count 9.08 K/mm3 (4.00-11.30)
[2022-11-12 04:44] LABS: Calcium, Blood 8.1 mg/dL (8.5-10.1); Creatinine, Blood 0.6 mg/dL (0.40-1.00); Magnesium, Blood 2.4 mg/dL (1.6-2.4); Phosphorus, Blood 3.1 mg/dL (2.5-4.9); Potassium, Blood 3.7 mmol/L (3.5-5.5)
--- NOTE | 2022-11-12 07:15 | NUR ---
Assumed care of pt from Nadiya BRIGGS. Pt sedated with propofol at 30 mcg/kg/min. Precedex 0.9 mcg/kg/hr. Ketamine off. 7.5 cm ETT at expected location of 24 cm at teeth. Vent settings ACVC 16/350/5/30%. SpO2 90% or greater.
--- NOTE | 2022-11-12 13:24 | NUR ---
Extubated at 0931 to 4 LPM NC. Tolerated extuation well from respiratory standpoint. Patient agitated and delirious. Oriented patient to situation, but she was not receptive. Pt becomes fixated on one thought or sentence and repeats it. She has done this with "Why am I awake", "I'm ", "I don't want to ", "Kill me", "I peed myself", "I want my dog" and when her friend, Earnestine, was in the room she repeated "I'm pissed with you". Pt's friend was at bedside shortly after extubation but pt did not seem to respond well to her presence. Discussed with visitor that pt is confused and experiencing delirium; the visitor seemed to be in denial about this. Also discussed that since pt was extubated minutes prior to her arrival, that pt should rest her voice, however visitor was continuously talking to her. This RN noticed patient visibly crying after about 10 minutes of vistation and asked visitor to leave. At this time, pt is currently resting with 1.2 mcg/kg/hr precedex, fan at bedside for white noise. SpO2 93% with room air.
--- NOTE | 2022-11-12 17:12 | NUR ---
SUMMARY Neuro/Musc/Psych: Precedex at 1.4 mcg/kg/hr for management of agitation and anxiety. Pt is currently resting comfortably in bed. Responsive to auditory stimulus. Pt remains confused/delirious. Pt has been able to state that she is in the hospital, but this is rare; she is always unclear which town she's in. On awakening, pt is instantly agitated and calling out repetitively "Help!" or "I don't want to ". On investigating what pt requires help with or why she feels unwell, pt is unable to further elaborate. Attempted bedside swallow eval but not able to safely provide pt with PO intake - she inconsistently follows directions and often drools water out of mouth when it is provided with a spoon. Moves all extremities with equal strength and range of motion. Repositions self independently in bed, often thrashes while awake. Cardiac: SR per monitor. BP stable. Resp: SpO2 90% or greater RA. Lungs clear t/o. New sputum sent prior to extubation per v/o Dr Jackson for thick yellow sputum. GI: NPO. Moderate sized brown liquid BM this shift after milk of mag was given. : Carlos catheter removed. Pt was pulling at catheter; it was causing her discomfort. Skin: Unchanged from inital assessment.
--- NOTE | 2022-11-12 19:30 | NUR ---
ASSUMED CARE UPON ENTERING ROOM WITH DAYSHIFT RN PATIENT WAS CHEWING ON A TUBE OF CALAZIME PASTE.ORAL CARE WAS PERFORMED. PATIENT IS CONFUSED DIFFICULT TO REDIRECT. VS STABLE, NO FAMILY AT BEDSIDE.
[2022-11-13 04:03] LABS: BASOPHILS ABSOLUTE AUTO 0.01 K/mm3 (0.00-0.23); BASOPHILS PERCENT AUTO 0 % (0-2); EOSINOPHILS ABSOLUTE AUTO 0.02 K/mm3 (0.00-0.68); EOSINOPHILS PERCENT AUTO 0 % (0-6); Hematocrit 37.2 % (33.0-51.0); Hemoglobin 12.3 g/dL (11.5-16.0); IMMATURE GRAN PERCENT AUTO 1 % (0-1); LYMPHOCYTES ABSOLUTE AUTO 1.19 K/mm3 (0.84-5.20); LYMPHOCYTES PERCENT AUTO 15 % (21-46); MONOCYTES ABSOLUTE AUTO 0.51 K/mm3 (0.16-1.47); MONOCYTES PERCENT AUTO 6 % (4-13); Mean Corpuscular HGB 30.6 pg (26.0-34.0); Mean Corpuscular HGB Conc 33.1 g/dL (31.5-36.5); Mean Corpuscular Volume 93 fL (80-100); Mean Platelet Volume 8.9 fL (9.1-12.4); NEUTROPHILS ABSOLUTE AUTO 6.18 K/mm3 (1.96-9.15); NEUTROPHILS PERCENT AUTO 77 % (41-73); Platelet Count 237 K/mm3 (150-400); RDW Coefficient Variation 14.2 % (11.7-14.2); RDW Standard Deviation 48.5 fL (35.1-46.3); Red Blood Cell Count 4.02 M/mm3 (3.80-5.20); White Blood Cell Count 8.01 K/mm3 (4.00-11.30)
[2022-11-13 04:18] LABS: Creatinine, Blood 0.49 mg/dL (0.40-1.00); Magnesium, Blood 2.3 mg/dL (1.6-2.4); Phosphorus, Blood 2.4 mg/dL (2.5-4.9)
--- NOTE | 2022-11-13 05:34 | NUR ---
PATIENT BECAME LESS CONFUSED THROUGHOUT THE NIGHT. A&O X 2-3. PRECEDEX WEANED DOWN. CONTINUES TO BE ANXIOUS/CRYING. VS STABLE REMAINS ON ROOM AIR.
--- NOTE | 2022-11-13 07:56 | NUR ---
Assumed care of pt at 0700. Report received from Nadiya BRIGGS. Pt A&O x 3 (date was incorrect by 5 days, however). Answers questions, follows commands, verbalizes needs. Pleasant and cooperative with care. Labile mood. Crying one minute and stable mood the next. Pt states she takes "duloxetine" for pain and she feels this also stabilizes her mood. Will discuss with provider. Pt was able to stand and transfer to chair using walker, gait belt, and two person assist. Tab alarm in place. Pt was able to brush own teeth and wash face with washcloth.
--- NOTE | 2022-11-13 12:37 | NUR ---
Medical floor status w/o telemetry per v/o Dr Jackson. Pt has been pleasant and cooperative with care. Does not attempt to ambulate without assistance. Taken to shower room for shower, pt tolerated well.
--- NOTE | 2022-11-13 14:29 | NUR ---
Spiritual Care Visit Pt. is awake and sitting up in bed when she welcomes my visit. After introductions Pt. becomes unsettled and reaches out for my hand concerning the recent news of the passing of her older brother. Through theraputic listening and a calming presence, Pt. also reveals concerns about her son who is in a mental hospital in [place]. Listen with Empathy. Pt. displays raw emotion. With pastoral residential substance abuse counselor and engagement facilitated a family life review. Pt. is also unsettled about her current separation from her comfort dog. Pt. displayed evidence of a lower anxiety after more theraputic listening. Prayed with Pt. Pt. verbalized gratitude for the spiritual care visit.
--- NOTE | 2022-11-13 15:04 | NUR ---
SUMMARY Pt is medical floor status w/o telemetry. Pt is A&O x 4. Answers questions. Follows commands. Verbalizes needs. Pleasant and cooperative with care. Moves all extremities with equal strength and range of motion. SpO2 90% or greater RA. Lungs clear in all franco. Pt has dry, nonproductive cough. Mobilized with PT and OT this shift. Pt does not attempt to mobilize without assistance. Pt updating friends and family. Able to feed self. Toelerating full liquid diet well w/o signs of aspriation. Plan to upgrade to soft cardiac diet. 3 liquid BMs this shift. Noted that pt received milk of mag yesterday. Additionally, pt states she is lactose intolerant. Plan for pt to tx to room 338.
--- NOTE | 2022-11-13 16:17 | NUR ---
TX NOTE:PT TX TO ROOM 338 VIA WC. PT ON ARRIVAL IS A/O X 4 STANDBY ASSIST TO BED. PLEASANT AND COOPERATIVE. PT HAS DRY COUGH, DENIES CONCERNS AT THIS TIME. VS STABLE WITH 107 HR. DENIES CP. SOB WITH EXERTION TO BSC. PT HAS WATERY DIARRHEA BUT HAD LACTOSE IN HER LUNCH AND WAS INFORMED SHE IS LACTOSE FREE DIET. DIET ADVANCED TO [facility] SOFT LACTOSE FREE PER SLASHER MACHINE OPERATOR. PT ORIENTED TO RM/FLOOR/CALL LIGHT/PHONE. BED ALARM SET AND BED IN LOW POSITION.
--- NOTE | 2022-11-14 06:41 | NUR ---
LINING BRUSHER SUMMARY: A&Ox4. CALLS APPROPRIATELY AND IS ABLE TO COMMUNICATE NEEDS EFFECTIVELY. UNDERESTIMATES OWN ABILITIES AND LACKS INSIGHT AND JUDGMENT. C/O COUGH AND SORE THROAT ATTRIBUTED TO EXTUBATION TWO DAYS AGO; PRN CEPACOL ADMINISTERED Q4H PRN WELL BD PROTOCOL. PRN FENTANYL PAIN AND PRN ATIVAN FOR ANXIETY. LOOKING FORWARD TO HER DOG COMING TO VISIT HER TODAY. INCONTINENT; WEARING BRIEFS, FOLLOWING LAMA REMOVAL YESTERDAY. REPORT TO ONCOMING RN.
[2022-11-14] MEDS ORDERED: Bisoprolol Fumar5 MG PO (12:06)
[2022-11-14] MEDS ORDERED: LIDO700A20 TOP (12:07)
[2022-11-14] MEDS ORDERED: LATUDA20 M1 PO (12:09)
[2022-11-14] MEDS ORDERED: ANORO ELLIPTA1 EACH INH (12:10)
[2022-11-14] MEDS ORDERED: DULO60 PO (12:12)
[2022-11-14] MEDS ORDERED: HYDHCL25 PO (12:13)
[2022-11-14] MEDS ORDERED: PANT40 PO (12:14)
[2022-11-14] MEDS ORDERED: K-Dur10 MEQ PO (12:15)
[2022-11-14] MEDS ORDERED: TORSE20 PO (12:16)
[2022-11-14] MEDS ORDERED: TRAZ50 PO (12:17)
--- NOTE | 2022-11-14 12:18 | NUR ---
MEDRECONCILIATION COMPLETED WITH PATIENT. NOTIFIED.
--- NOTE | 2022-11-14 16:20 | NUR ---
"Spiritual Care Consult | ordered by Dr. Carrasco Pt. has just finished breathing treatments when she welcomes my visit. Rapport is quickly re-established. Consult was concerned about Pts. emotional distress due to her son who is in a mental facility in [place]. Pt. Through theraputic listening and a calming presence Pt. was able to verbalize encouragement. Her son had recently contacted her by phone. Pt. does not display evidence of depression. Pt. is unsettled by the lack of sleep and verbalized an expectation that she would be given some medication this evening to help her rest. Prayed with Pt. concerning her son, and concerning her need for sleep. Pt. verbalized genuine gratitude for the spiritual care visit."
--- NOTE | 2022-11-14 18:45 | NUR ---
SHIFT SUMMARY: PT A/O X 4, STANDBY ASSIST WITH WALKER AND GB. PLEASANT AND COOPERATIVE WITH CARE. PT REPORTS CHRONIC BACK PAIN AND NORCO EFFECTIVE IN TREATING PAIN. PT CONTINUES TO HAVE DRY COUGH WITH MINIMAL SPUTUM PRODUCTION. PT INSTRUCTED ON IS AND ENCOURAGED TO USE. PT WORKED WELL WITH PT TODAY AND AMBULATED HALLS. PT DID GET EMOTIONAL WHEN TALKING ABOUT HER SON WHO SHE REPORTS IS NOW AT THE NEW [facility] FOR TREATMENT AND SHE RECENTLY LOST HER BROTHER DUE TO SUDDEN . PT AGREED TO DOG THERAPY VISIT AND SPIRITUAL CONSULT.
[2022-11-15] MEDS ORDERED: Ventolin/Prove6.7 GM INH (00:06)
[2022-11-15 06:08] LABS: Bun/Creatinine Ratio 17.3 (12.0-20.0); Calcium, Blood 8.3 mg/dL (8.5-10.1); Creatinine, Blood 0.58 mg/dL (0.40-1.00); Potassium, Blood 3.8 mmol/L (3.5-5.5)
--- NOTE | 2022-11-15 06:12 | NUR ---
SHIFT SUMMARY PT A&O X 4, PT EMOTIONAL AT BEGINNING OF THE SHIFT- PT REPORTED BEING UPSET BECAUSE SHE WAS HOMESICK AND MISSED HER DOG- ORDER IN SYSTEM FOR SPIRITUAL CONSULT AND THERAPY DOG- INFORMED PT THAT HER DOG CAN COME AND VISIT PT AND PT CALMED AFTER NOTIFIED- PT CALLED APPROPRIATE T/O NIGHT- MEDICATED FOR PAIN AND SLEEP- BED LOW POSITION, CALL LIGHT WITHIN REACH
--- NOTE | 2022-11-15 17:20 | NUR ---
SHIFT SUMMARY PT AXO, PLEASANT AND COOPERATIVE WITH CARE. NO ACUTE CHANGES THIS SHIFT. PT COUGHING UP SMALL AMOUNT OF THICK YELLOW SPUTUM. UP WITH 1 ASSIST FWW AND GB THOUGH PT DOES NOT ALWAYS CALL WHEN OOB. PT ENCOURAGED TO USE HER CALL LIGHT. VSS THOUGH PT WAS TACHYPNEIC WITH EXERTION. PT MEDICATED FOR PAIN PER EMAR. PICC PATENT AND SALINE LOCKED. BED IN LOW POSITION, CALL LIGHT WITHIN REACH.
[2022-11-16] MEDS ORDERED: GUAI600T33 PO (12:19)
[2022-11-16] MEDS ORDERED: PRED20 (12:20)
--- NOTE | 2022-11-16 15:05 | NUR ---
DISCHARGE PT DISCHARGED HOME. PT IS ALERT AND ORIENTED X4, R/A. INDEPENDENT WITH WALKER. DISCHARGE INSTRUCTIONS PROVIDED.
== END 2022-11-16 13:42 | disposition home health service (06) | DRG 208 ==
LOC: ER 22:17 → ICUE 22:18 → ICUW 22:18 → ICUE 11-09 03:06 → MEDS 11-09 15:16 → ICUE 11-09 15:16 → MEDS 11-09 15:16 → ICUE 11-13 09:36 → MEDS 11-13 15:48
PROVIDERS: Internal Medicine; Internal Medicine Critical Care Medicine; Student in an Organized Health Care Education/Training Program; ADMIT Internal Medicine
PROC: 0BH18EZ Insertion of Endotracheal Airway into Trachea, Via Natural or Artificial Opening Endoscopic (ICD-10-PCS; principal; 2022-11-09)
PROC: 4A033R1 Measurement of Arterial Saturation, Peripheral, Percutaneous Approach (ICD-10-PCS; 2022-11-09)
PROC: 3E033XZ Introduction of Vasopressor into Peripheral Vein, Percutaneous Approach (ICD-10-PCS; 2022-11-09)
PROC: 5A1945Z Respiratory Ventilation, 24-96 Consecutive Hours (ICD-10-PCS; 2022-11-09)
PROC: 5A09357 Assistance with Respiratory Ventilation, Less than 24 Consecutive Hours, Continuous Positive Airway Pressure (ICD-10-PCS; 2022-11-09)
PROC: 05HY33Z Insertion of Infusion Device into Upper Vein, Percutaneous Approach (ICD-10-PCS; 2022-11-09)
PROC: 0DH67UZ Insertion of Feeding Device into Stomach, Via Natural or Artificial Opening (ICD-10-PCS; 2022-11-10)
PROC: 3E0G76Z Introduction of Nutritional Substance into Upper GI, Via Natural or Artificial Opening (ICD-10-PCS; 2022-11-10)
DX: J96.01 Acute respiratory failure with hypoxia (principal); I21.A1 Myocardial infarction type 2; G92.8 Other toxic encephalopathy; I50.31 Acute diastolic (congestive) heart failure; G93.1 Anoxic brain damage, not elsewhere classified; J98.11 Atelectasis; J45.901 Unspecified asthma with (acute) exacerbation; Z20.822 Contact with and (suspected) exposure to COVID-19; Z78.1 Physical restraint status; K58.9 Irritable bowel syndrome, unspecified; E03.9 Hypothyroidism, unspecified; I95.2 Hypotension due to drugs; T42.75XA Adverse effect of unspecified antiepileptic and sedative-hypnotic drugs, initial encounter; F41.8 Other specified anxiety disorders; I11.0 Hypertensive heart disease with heart failure; K76.0 Fatty (change of) liver, not elsewhere classified; J96.02 Acute respiratory failure with hypercapnia; I27.20 Pulmonary hypertension, unspecified; F17.210 Nicotine dependence, cigarettes, uncomplicated; Z87.19 Personal history of other diseases of the digestive system; Z88.2 Allergy status to sulfonamides; Z88.8 Allergy status to other drugs, medicaments and biological substances; Z91.018 Allergy to other foods; Z79.51 Long term (current) use of inhaled steroids; Z79.52 Long term (current) use of systemic steroids; Z79.890 Hormone replacement therapy; Z79.899 Other long term (current) drug therapy
CPT/HCPCS: 0241U; 31500; 36415; 36569; 36600; 51702; 71045; 71260; 80048; 80053; 81001; 82803; 82947; 83605; 83735; 83880; 84100; 84145; 84484; 85025; 87040; 87070; 87205; 93005; 93010; 93306; 94002; 94003; 94640; 94644; 94645; 94664; 94760; 94762; 96365-59; 96367-59; 96375-59; 97110; 97116; 97162; 97166; 97530; 97535; 99285-25; A9270; C1894; C9113; J0696; J1650; J2060; J2250; J2704; J2920; J2930; J3010; J3475; J7030; J7040; J7050; J7060; J7512; Q9967

== ENCOUNTER 2023-08-18 10:57 | Day surgery (SDC) | payer OTHER ==
[~2023-08-18] VITALS: Ht 160 cm; Wt 86.2 kg
[2023-08-18] VITALS (14 sets, daily range): BP systolic 94–120; BP diastolic 53–89
[~2023-08-18 10:57] MED LIST changes: +ANORO ELLIPTA1 EACH INH; +Bisoprolol Fumar5 MG PO; +Cyclobenzaprine5 MG PO; +DULO60 PO; +GUAI600T33 PO; +HYDHCL25 PO; +K-Dur10 MEQ PO; +LATUDA20 M1 PO; +LEVALBUTEROL TA15 G1 INH; +LIDO700A20 TOP; +MELO7.5 PO; +POTCIT10 PO; +PRED20; +TRAZ50 PO; +Ventolin/Prove6.7 GM INH
[2023-08-18] MEDS ORDERED: TRELEGY ELLIPT1 EACH INH (12:02)
[2023-08-18] MEDS ORDERED: ZYRTEC10 M4 PO (12:03)
--- NOTE | 2023-08-18 12:11 | NUR ---
Ambulatory in Day Surgery. History, Chart, Medications and Allergies reviewed before start of procedure.Pre-Op teaching done. Pt verbalizes understanding. Patient confirms NPO status and agrees with scheduled surgery.
--- NOTE | 2023-08-18 15:18 | NUR ---
08/18/23 1518 Tia Sharma SPINAL NERVE BLOCK COMPLETED BY DR. FONSECA UPON ENTRY TO OR. PT TOLERATED WELL.
--- NOTE | 2023-08-18 17:06 | NUR ---
PT ADMITTED FROM PACU FOR L TOTAL KNEE. PT DENIES PAIN AT THIS TIME. LE ARE NUMB AND WEAK. PT IS RESTING COMFORTABLY IN BED. SHE IS REQUESTING SOMETHING TO EAT. BREATHING EVEN AND UNLABORED, VSS, CALL LIGHT WITHIN REACH.
--- NOTE | 2023-08-18 18:04 | NUR ---
SHIFT SUMMARY PT POD 0 FROM L TOTAL KNEE. PT HAS A SPINAL AND HAS YET TO VOID. SHE REPORTS SEVERE PAIN, MEDICATED PER EMR. PT A&O, COOPERATIVE. VSS, LUNGS CTA. PT TOLERATING PO INTAKE. PT IS RESTING, BREATHING EVEN AND UNLABORED, CALL LIGHT WITHIN REACH.
--- NOTE | 2023-08-18 21:30 | NUR ---
SWALLOWING ISSUES PT ON A REGULAR DIET, PT REPORTS BEING HUNGRY AND REQUESTED A TURKEY SANDWHICH, AND CHOCOLATE PUDDING. A FEW MINUTES AFTER PT STARTED EATING KEVAN ROBLES CAME TO TELL ME THAT PT HAD FOOD CAUGHT IN HER THROAT AND THAT SHE WAS TRYING TO GET IT OUT. I WENT INTO ROOM TO FIND PT WITH A EMESIS BAG TRYING TO THROW UP THE SANDWHICH SHE WAS EATING. PT WAS BREATHING AND TALKING NORMALLY WITHOUT RESPIRATORY DISTRESS. PT REPORTS THAT SHE HAS THIS ISSUE ALL THE TIME AT HOME AND THAT IT USUALLY HAPPENS WITH BREAD. SHE STATES "I FORGOT TO MENTION THAT TO YOU ALL". PT STATES THAT SHE IS SUPPOSE TO HAVE A SCOPE DONE TO DETERMINE WHAT IS CAUSING IT. PT WAS SUCCESSFULLY ABLE TO CLEAR THE SANDWHICH BY VOMITTING. NO OTHER ISSUES WITH SWALLOWING T/O THE NIGHT. CURATOR OF EDUCATION MADE AWARE OF INCIDENT.
--- NOTE | 2023-08-19 04:15 | NUR ---
SHIFT SUMMARY PT POD 0 LEFT TOTAL KNEE. PT HAS RESTED MOST OF THE NIGHT, MEDICATED FOR PAIN PRN PER EMAR. PT VOIDING, AMBULATING AND TOLERATING PO INTAKE. AROUND 0300 PT AMBULATED IN THE HALLWAY AND DID REPORT DIZZINESS. PT AMBULATED BACK TO BED SAFELY WITH THIS RN AND PICTURE COPYIST. A WHEELCHAIR WAS OFFERED TO GET HER BACK TO HER ROOM BUT PT DECLINED AND WANTED TO WALK BACK. VITALS ARE STABLE. DRESSING C/D/I TO LEFT KNEE.
[2023-08-19 04:54] LABS: BASOPHILS ABSOLUTE AUTO 0.03 K/mm3 (0.00-0.23); BASOPHILS PERCENT AUTO 0 % (0-2); EOSINOPHILS ABSOLUTE AUTO 0.36 K/mm3 (0.00-0.68); EOSINOPHILS PERCENT AUTO 5 % (0-6); Hematocrit 33.9 % (33.0-51.0); Hemoglobin 11.4 g/dL (11.5-16.0); IMMATURE GRAN ABSOLUTE AUTO 0.03 K/mm3 (0.00-0.10); IMMATURE GRAN PERCENT AUTO 0 % (0-1); LYMPHOCYTES ABSOLUTE AUTO 2.24 K/mm3 (0.84-5.20); LYMPHOCYTES PERCENT AUTO 29 % (21-46); MONOCYTES ABSOLUTE AUTO 0.52 K/mm3 (0.16-1.47); MONOCYTES PERCENT AUTO 7 % (4-13); Mean Corpuscular HGB 31.4 pg (26.0-34.0); Mean Corpuscular HGB Conc 33.6 g/dL (31.5-36.5); Mean Corpuscular Volume 93 fL (80-100); Mean Platelet Volume 8.9 fL (9.1-12.4); NEUTROPHILS ABSOLUTE AUTO 4.65 K/mm3 (1.96-9.15); NEUTROPHILS PERCENT AUTO 59 % (41-73); Platelet Count 240 K/mm3 (150-400); RDW Coefficient Variation 13.7 % (11.7-14.2); RDW Standard Deviation 47.1 fL (35.1-46.3); Red Blood Cell Count 3.63 M/mm3 (3.80-5.20); White Blood Cell Count 7.83 K/mm3 (4.00-11.30)
[2023-08-19 05:19] LABS: Bun/Creatinine Ratio 26.4 (12.0-20.0); Creatinine, Blood 0.72 mg/dL (0.40-1.00); Potassium, Blood 3.9 mmol/L (3.5-5.5)
[2023-08-19 06:02] VITALS: BP 115/68
--- NOTE | 2023-08-19 06:27 | NUR ---
CHEST PAIN PT STARTED COMPLANING OF CHEST PAIN AT 0600, PT SITTING UP IN RECLINER. SHE DESCRIBED THE PAIN SHARP AND THAT IT RADIATED TO HER JAW. STATES PAIN 8 (0/10). PT REPORTS THAT IT MAY JUST BE ANXIETY. SHE ALSO REPORTS A PMH OF ESOPHAGEAL SPASMS AND STATES THAT WHEN SHE HAS THEM IT FEELS LIKE CHEST PAIN. VITALS OBTAINED AND WERE STABLE. EKG PERFORMED AND WAS WNL. A FEW MINUTES AFTER EKG WAS DONE PT REPORTED THAT SHE WAS FEELING BETTER AFTER BELCHING. SKIN WARM AND DRY, NO NAUSEA OR VOMITTING. SUPERVISOR SINTERING PLANT SARAN AWARE. DR. VEGAS TO ROUND THIS AM. EKG STRIP PLACED IN CHART.
[2023-08-19 07:17] VITALS: BP 117/74
[2023-08-19] MEDS ORDERED: ASPI81CH PO (09:01)
[2023-08-19] MEDS ORDERED: Percocet 5-3251 EACH PO (09:17)
--- NOTE | 2023-08-19 11:21 | NUR ---
"Spiritual Care | Pt. Request Pt. is sitting up in her recliner dressed and awaiting discharge when she welcomes my visit. Pt. is pleasant. Pt. verbalizes that she is happy but concerned about her son who is living at an adapt apartment. Pt. shares photographs on her phone. Pt. verbalized about her spiritual background, but displayed evidence of not being actively involved in her antonieta. Considered matters of antonieta and belief and sought to normalize the Pt. experience. Prayed for both the Pt. and her son. Pt. verbalized gratitude for the spiritual care visit."
--- NOTE | 2023-08-19 14:41 | NUR ---
DISCHARGE: PACKET PRINTED AND PT EDUCATED. PT GIVEN SCRIPTS AND EXTRA AQUACEL DRESSINGS. PT VERBALIZED UNDERSTANDING. LEFT UNIT VIA WHEELCHAIR AT ABOUT 1210 WITH THIS RN
== END 2023-08-19 13:08 | disposition home or self-care (01) ==
LOC: ORSCMMR 10:57 → ORD 12:30 → ORSCMMR 12:30 → SURS 16:28 → ORSCMMR 16:29 → SURS 08-19 13:08
PROVIDERS: Orthopaedic Surgery
PROC: 0SRD0JA Replacement of Left Knee Joint with Synthetic Substitute, Uncemented, Open Approach (ICD-10-PCS; principal; 2023-08-18 12:30)
DX: M17.12 Unilateral primary osteoarthritis, left knee (principal); E03.9 Hypothyroidism, unspecified; F41.8 Other specified anxiety disorders; J45.909 Unspecified asthma, uncomplicated; Z79.899 Other long term (current) drug therapy; Z87.891 Personal history of nicotine dependence
CPT/HCPCS: 36415; 73560-LT; 80048; 85025; 93005; 93010; 94640; 94664; 94760; 97110; 97116; 97162; 97530; A9270; C1713; C1776; J0171; J0690; J0735; J1170; J1885; J2250; J2704; J2795; J3010; J7120

== ENCOUNTER 2024-03-15 05:44 | Day surgery (SDC) | payer OTHER ==
[~2024-03-15] VITALS: Ht 162.6 cm; Wt 92.2 kg
[2024-03-15] VITALS (15 sets, daily range): BP systolic 93–123; BP diastolic 57–81
[~2024-03-15 05:44] MED LIST changes: +A AND D OINTM42.5 GM; +BUME1 PO; +CELE100 PO; +Percocet 5-3251 EACH PO; +TOCO1000 PO; +TRELEGY ELLIPT1 EACH INH; +VITAMIN D310 MC4 PO; +ZYRTEC10 M4 PO
[2024-03-15] MEDS ORDERED: Chlorhexidine Mouth Care 15 ML UDC MT SCH (06:05)
[2024-03-15] MEDS ORDERED: Tranexamic Acid 100 ML IV SCH (06:05)
[2024-03-15] MEDS ORDERED: Acetaminophen 500 MG Tab PO SCH ×2 (06:05→16:00)
[2024-03-15] MEDS ORDERED: Ropivacaine 0.5% HCl/Pf 123.125 MG,EPINEPHrine HCL 0.25 MG,Ketorolac Tromethamine 15 MG... INFIL SCH (06:05)
[2024-03-15] MEDS ORDERED: OxyCODONE HCL 10 MG TABCR PO SCH (06:05)
[2024-03-15] MEDS ORDERED: Lactated Ringer's 1,000 ML IV SCH ×2 (06:05→09:35)
[2024-03-15] MEDS ORDERED: CeFAZolin Sodium 2,000 MG in NS 100 ML IV SCH ×2 (06:05→15:30)
[2024-03-15] MEDS ORDERED: ASPI81CH PO ×2 (06:17→12:29)
[2024-03-15] MEDS ORDERED: Lactated Ringer's 1,000 ML IV ONE (06:22)
[2024-03-15] MEDS ORDERED: propofoL 20 ML IV ONE ×2 (06:47→08:50)
[2024-03-15] MEDS ORDERED: Midazolam HCl 1MG / ML 2ML Vial ONE ×2 (06:47→08:42)
[2024-03-15] MEDS ORDERED: FentaNYL Citrate 50 MCG/ML 2 ML Injection ONE ×2 (06:47→09:44)
[2024-03-15] MEDS ORDERED: propofoL 40 ML IV ONE (06:48)
[2024-03-15] MEDS ORDERED: Ondansetron HCl 2 MG / ML 2ML Vial ONE (07:41)
[2024-03-15] MEDS ORDERED: Dexamethasone Sod Phos 10 MG/ML 1ML VIAL ONE (07:41)
[2024-03-15] MEDS ORDERED: Phenylephrine HCl 100 MCG/ML-NS 10MLSYR (1MG/10ML) ONE (07:41)
[2024-03-15] MEDS ORDERED: ePHEDrine Sulfate 50 MG/ML 1ML Injection ONE (07:44)
[2024-03-15] MEDS ORDERED: TraZODone HCl 50 MG Tab PO PRN (09:30)
[2024-03-15] MEDS ORDERED: DiphenhydrAMINE HCL 25 MG Cap PO PRN (09:35)
[2024-03-15] MEDS ORDERED: HYDROmorphone HCl/Pf 1MG SYR IV PRN (09:35)
[2024-03-15] MEDS ORDERED: Promethazine HCl 25 MG Tab PO PRN (09:35)
[2024-03-15] MEDS ORDERED: Magnesium Hydroxide Conc 10 ML UDC PO PRN (09:40)
[2024-03-15] MEDS ORDERED: OxyCODONE HCL 5 MG TAB PO PRN ×2 (09:40)
[2024-03-15] MEDS ORDERED: Ondansetron HCl 2 MG / ML 2ML Vial IV PRN (09:40)
[2024-03-15] MEDS ORDERED: Metoclopramide HCl 5MG / ML 2ML Vial IV PRN (09:40)
[2024-03-15] MEDS ORDERED: Bisacodyl 10 MG Supp PR PRN (09:45)
[2024-03-15] MEDS ORDERED: Prochlorperazine Edisylate 10 mg Vial IV PRN (09:45)
[2024-03-15] MEDS ORDERED: Ipratropium Bromide INH 0.02% 0.5 mg/2.5ML Vial INH SCH (09:55)
[2024-03-15] MEDS ORDERED: Mometasone/Formoterol MDI 100/5 mcg 13 GM INH SCH (09:55)
[2024-03-15] MEDS ORDERED: Lidocaine 4% 1 Patch TOP PRN (10:10)
[2024-03-15] MEDS ORDERED: Albuterol HFA200 ACT/6.7 GM INH INH PRN (10:10)
--- NOTE | 2024-03-15 10:11 | NUR ---
PATIENT JUST ARRIVED FROM PACU TODAY. POD 0 LEFT TOTAL HIP PATIENT IS DROWSY BUT IS ANSWERING QUESTIONS APPROPRIATELY. PATIENT HAD A SPINAL DURING THE PROCEDURE AND REPORTS NO PAIN AT THIS TIME IN HER LEFT HIP. HER LEFT HIP HAS AN AQUACEL DRESSING THAT IS C/D/I. PATIENT IS UNABLE TO WIGGLE TOES AT THIS TIME BUT PEDAL PULSES ARE STRONG AND WARM TO TOUCH. SHE IS TOLERATING SMALL AMOUNTS OF PO INTAKE AT BEDSIDE. SHE IS LAYING IN BED WITH CALL LIGHT IN REACH.
[2024-03-15] MEDS ORDERED: HYDROcodone 5-APAP 325 TAB PO PRN (10:35)
[2024-03-15] MEDS ORDERED: Ketorolac Tromethamine 15mg Vial IV SCH (12:00)
--- NOTE | 2024-03-15 14:23 | NUR ---
Pt. is awake in bed and welcomes my visit. This engineer fishing vessel is known to the Pt. from previous hospital visits. Consider matters of family and other concerns. Listen with empathy and a calming presence. Pt. displays evidence of trust, but also displays evidenc eof being tired. Prayed with the Pt. Pt. verbalized gratitude for the spiritual care visit and welcomed this engineer fishing vessel to return.
--- NOTE | 2024-03-15 17:31 | NUR ---
SHIFT SUMMARY: POD 0 LEFT TOTAL HIP PATIENT IS A&OX4. PATIENT DID HAVE A SPINAL DURING THE PROCEDURE BUT HAS FULL SENSATION TO ALL EXTREMITIES. EARLIER THIS EVENING PATIENT TOLD PHYSICAL THERAPY THAT SHE WAS ONLY "NUMB" IN HER LEFT LEG BUT WHEN THIS NURSE WENT INTO THE ROOM AFTER PHYSICAL THERAPY PATIENT WAS MOVING BOTH LEGS IN BED REPORTING "MY PAIN IS 20/10 PAIN WHEN I MOVE!". PAIN HAS BEEN MANAGED WITH PO NORCO, PO TYLENOL, IV TORADOL, AND IV DILAUDID FOR BREAKTHROUGH PAIN PER EMAR. PEDAL PULSES ARE STRONG AND WARM TO TOUCH. HER LEFT HIP HAS AN AQUACEL DRESSING THAT IS C/D/I WITH POLAR PACK IN PLACE. PATIENT USED A BEDPAN THIS EVENING TO VOID AND PATIENT STATED "I'M STILL TOO NUMB TO GET OUT OF BED!" EVEN THOUGH PATIENT WAS SEEN SHORTLY AFTER BENDING BOTH KNEES TO BOOST HERSELF UP IN BED. PATIENT IS TOLERATING PO INTAKE AND IS VOIDING. SHE IS LAYING IN BED WITH CALL LIGHT IN REACH.
[2024-03-15] MEDS ORDERED: Misc. Tablet PO SCH (18:00)
[2024-03-15] MEDS ORDERED: Docusate Sodium 100 MG Cap PO SCH (21:00)
[2024-03-16 00:07] VITALS: BP 112/68
[2024-03-16 03:03] VITALS: BP 114/54
[2024-03-16 04:54] LABS: BASOPHILS ABSOLUTE AUTO 0.02 K/mm3 (0.00-0.23); BASOPHILS PERCENT AUTO 0 % (0-2); EOSINOPHILS PERCENT AUTO 0 % (0-6); Hematocrit 25.8 % (33.0-51.0); Hemoglobin 8.3 g/dL (11.5-16.0); IMMATURE GRAN ABSOLUTE AUTO 0.05 K/mm3 (0.00-0.10); IMMATURE GRAN PERCENT AUTO 0 % (0-1); LYMPHOCYTES PERCENT AUTO 8 % (21-46); MONOCYTES ABSOLUTE AUTO 0.73 K/mm3 (0.16-1.47); MONOCYTES PERCENT AUTO 6 % (4-13); Mean Corpuscular HGB 31.2 pg (26.0-34.0); Mean Corpuscular HGB Conc 32.2 g/dL (31.5-36.5); Mean Corpuscular Volume 97 fL (80-100); Mean Platelet Volume 9.4 fL (9.1-12.4); NEUTROPHILS ABSOLUTE AUTO 10.12 K/mm3 (1.96-9.15); NEUTROPHILS PERCENT AUTO 86 % (41-73); Platelet Count 233 K/mm3 (150-400); RDW Coefficient Variation 13.1 % (11.7-14.2); RDW Standard Deviation 46.5 fL (35.1-46.3); Red Blood Cell Count 2.66 M/mm3 (3.80-5.20); White Blood Cell Count 11.82 K/mm3 (4.00-11.30)
[2024-03-16 05:07] LABS: Creatinine, Blood 0.66 mg/dL (0.40-1.00); Potassium, Blood 4.4 mmol/L (3.5-5.5)
[2024-03-16] MEDS ORDERED: Levothyroxine Sodium 0.05 MG Tab PO SCH (06:00)
--- NOTE | 2024-03-16 06:41 | NUR ---
SHIFT SUMMARY: MIGUEL ANGEL IS A&OX4. VSS, NO ACUTE EVENTS THIS SHIFT. SHE IS TOLERATING PO INTAKE WELL, DENIES ANY DIFFICULTY URINATING, AND REPORTS ADEQUATE PAIN CONTROL WITH MEDICATIONS PER MAR. POLAR PACK, SCDs, AND AMANDA HOSE IN PLACE. SHE IS A STANDBY ASSIST TO THE BATHROOM WTIH THE FWW AND GB. PT STATES THAT THE NUMBNESS/TINGLING TO THE LEFT LEG HAVE RESOLVED. IV TO THE LEFT FOREARM PATENT. SHE IS LYING IN BED WITH THE CALL LIGHT IN REACH. WILL GIVE REPORT TO DAY SHIFT RN.
[2024-03-16 07:13] VITALS: BP 136/72
[2024-03-16] MEDS ORDERED: Aspirin 81 MG Chew PO SCH (09:00)
[2024-03-16] MEDS ORDERED: Cholecalciferol 400 unit Tab PO SCH (09:00)
[2024-03-16] MEDS ORDERED: Bumetanide 1 MG Tab PO SCH (09:00)
[2024-03-16] MEDS ORDERED: Potassium Citrate 5 MEQ TABCR PO SCH (09:00)
[2024-03-16] MEDS ORDERED: Vitamin E 1000 Unit Cap PO SCH (09:00)
[2024-03-16] MEDS ORDERED: DULoxetine HCL 60 MG Capsule DR PO SCH (09:00)
--- NOTE | 2024-03-16 10:22 | NUR ---
DISCHARGE NOTE: PATIENT WAS EDUCATED ON DISCHARGE INSTRUCTIONS. SHE VERBALIZED UNDERSTANDING OF INSTRUCTIONS AND HAD NO FURTHER QUESTIONS AT THIS TIME. IV WAS TAKEN OUT AND WNL. PAIN IS MANAGED WITH PO PAIN MEDS. HER LEFT HIP HAS AN AQUACEL DRESSING THAT IS C/D/I. PATIENT IS A SBA WITH FWW AND GAIT BELT. SHE DENIES NUMBNESS OR TINGLING THROUGHOUT ALL EXTREMITIES. SHE IS TOLERATING PO INTAKE AND IS VOIDING. PATIENT IS DRESSED AND HAS PERSONAL ITEMS IN THE ROOM GATHERED. PATIENT WAS WHEELCHAIRED OUTSIDE WITH PERSONAL ITEMS TO THE [facility] TRANSPORT TO TAKE HER HOME.
== END 2024-03-16 09:55 | disposition home or self-care (01) ==
LOC: ORSCMMR 05:44 → ORD 07:30 → ORSCMMR 07:30 → SURS 09:57 → ORSCMMR 03-16 09:55
PROVIDERS: Orthopaedic Surgery
PROC: 0SRB0JZ Replacement of Left Hip Joint with Synthetic Substitute, Open Approach (ICD-10-PCS; principal; 2024-03-15 07:30)
DX: M16.12 Unilateral primary osteoarthritis, left hip (principal); E03.9 Hypothyroidism, unspecified; F41.9 Anxiety disorder, unspecified; F32.A Depression, unspecified; Z79.899 Other long term (current) drug therapy; Z96.652 Presence of left artificial knee joint; E78.5 Hyperlipidemia, unspecified; J44.9 Chronic obstructive pulmonary disease, unspecified; Z87.891 Personal history of nicotine dependence; I10 Essential (primary) hypertension; F31.9 Bipolar disorder, unspecified; E66.9 Obesity, unspecified; Z68.34 Body mass index [BMI] 34.0-34.9, adult
CPT/HCPCS: 36415; 72170; 80048; 82947; 85025; 94640; 94664; 94760; 94762; 97110; 97116; 97161; A9270; C1776; J0171; J0690; J0735; J1100; J1170; J1885; J2250; J2371; J2405; J2704; J2795; J3010; J7120

== ENCOUNTER 2024-04-24 10:04 | Emergency (ER) | payer OTHER ==
[~2024-04-24] VITALS: Ht 162.6 cm; Wt 90.7 kg
[2024-04-24 10:32] VITALS: BP 107/78
== END 2024-04-24 10:37 | disposition home or self-care (01) ==
LOC: ER 10:04
DX: M96.830 Postprocedural hemorrhage of a musculoskeletal structure following a musculoskeletal system procedure (principal); F41.9 Anxiety disorder, unspecified; E03.9 Hypothyroidism, unspecified; I10 Essential (primary) hypertension; F17.210 Nicotine dependence, cigarettes, uncomplicated; Z88.2 Allergy status to sulfonamides; Z88.5 Allergy status to narcotic agent; Z88.8 Allergy status to other drugs, medicaments and biological substances; Z79.890 Hormone replacement therapy; Z79.899 Other long term (current) drug therapy; Z79.82 Long term (current) use of aspirin; Z96.642 Presence of left artificial hip joint
CPT/HCPCS: 99283

== ENCOUNTER → 2024-09-20 | Outpatient (CLI) | payer OTHER ==
[~2024-09-20] MED LIST changes: +Adipex-P37.5 M1 PO
[2024-09-20 14:30] LABS: BASOPHILS ABSOLUTE AUTO 0.03 K/mm3 (0.00-0.23); BASOPHILS PERCENT AUTO 1 % (0-2); EOSINOPHILS ABSOLUTE AUTO 0.07 K/mm3 (0.00-0.68); EOSINOPHILS PERCENT AUTO 2 % (0-6); Hematocrit 51.6 % (33.0-51.0); Hemoglobin 17.4 g/dL (11.5-16.0); IMMATURE GRAN ABSOLUTE AUTO 0.01 K/mm3 (0.00-0.10); IMMATURE GRAN PERCENT AUTO 0 % (0-1); LYMPHOCYTES ABSOLUTE AUTO 1.72 K/mm3 (0.84-5.20); LYMPHOCYTES PERCENT AUTO 37 % (21-46); MONOCYTES ABSOLUTE AUTO 0.38 K/mm3 (0.16-1.47); MONOCYTES PERCENT AUTO 8 % (4-13); Mean Corpuscular HGB Conc 33.7 g/dL (31.5-36.5); Mean Corpuscular Volume 89 fL (80-100); Mean Platelet Volume 8.8 fL (9.1-12.4); NEUTROPHILS ABSOLUTE AUTO 2.43 K/mm3 (1.96-9.15); NEUTROPHILS PERCENT AUTO 52 % (41-73); Platelet Count 290 K/mm3 (150-400); RDW Coefficient Variation 14.6 % (11.7-14.2); RDW Standard Deviation 46.5 fL (35.1-46.3); White Blood Cell Count 4.64 K/mm3 (4.00-11.30)
[2024-09-20 14:41] LABS: Albumin, Blood 3.8 g/dL (3.4-5.0); Bilirubin, Total 0.4 mg/dL (0.1-1.0); Bun/Creatinine Ratio 16.5 (12.0-20.0); Calcium, Blood 9.1 mg/dL (8.5-10.1); Creatinine, Blood 1.09 mg/dL (0.40-1.00); Globulin, Blood 3.9 g/dL (2.2-4.0); Potassium, Blood 3.1 mmol/L (3.5-5.5); Total Protein, Blood 7.7 g/dL (6.4-8.2)
== END | disposition home or self-care (01) ==
LOC: LAB SHORT 14:25 → LAB 14:25
PROVIDERS: Physician Assistant Medical
DX: E86.0 Dehydration (principal)
CPT/HCPCS: 80053; 85025

== ENCOUNTER → 2024-09-27 | Outpatient (CLI) | payer OTHER ==
[2024-09-27 16:33] LABS: BASOPHILS ABSOLUTE AUTO 0.02 K/mm3 (0.00-0.23); BASOPHILS PERCENT AUTO 0 % (0-2); EOSINOPHILS ABSOLUTE AUTO 0.05 K/mm3 (0.00-0.68); EOSINOPHILS PERCENT AUTO 1 % (0-6); Hemoglobin 15.7 g/dL (11.5-16.0); IMMATURE GRAN ABSOLUTE AUTO 0.04 K/mm3 (0.00-0.10); IMMATURE GRAN PERCENT AUTO 1 % (0-1); LYMPHOCYTES PERCENT AUTO 34 % (21-46); MONOCYTES ABSOLUTE AUTO 0.69 K/mm3 (0.16-1.47); MONOCYTES PERCENT AUTO 9 % (4-13); Mean Corpuscular HGB 29.8 pg (26.0-34.0); Mean Corpuscular HGB Conc 34.1 g/dL (31.5-36.5); Mean Corpuscular Volume 88 fL (80-100); Mean Platelet Volume 8.7 fL (9.1-12.4); NEUTROPHILS ABSOLUTE AUTO 4.37 K/mm3 (1.96-9.15); NEUTROPHILS PERCENT AUTO 56 % (41-73); Platelet Count 427 K/mm3 (150-400); RDW Coefficient Variation 14.2 % (11.7-14.2); RDW Standard Deviation 45.9 fL (35.1-46.3); Red Blood Cell Count 5.26 M/mm3 (3.80-5.20); White Blood Cell Count 7.87 K/mm3 (4.00-11.30)
[2024-09-27 16:43] LABS: Albumin, Blood 3.7 g/dL (3.4-5.0); Albumin/Globulin Ratio 1.1 (0.8-1.8); Bilirubin, Total 0.5 mg/dL (0.1-1.0); Bun/Creatinine Ratio 16.7 (12.0-20.0); Calcium, Blood 9.1 mg/dL (8.5-10.1); Creatinine, Blood 0.84 mg/dL (0.40-1.00); Globulin, Blood 3.4 g/dL (2.2-4.0); Potassium, Blood 3.6 mmol/L (3.5-5.5); Total Protein, Blood 7.1 g/dL (6.4-8.2)
== END | disposition home or self-care (01) ==
LOC: LAB 16:26 → LAB SHORT 16:26
PROVIDERS: Physician Assistant
DX: E87.6 Hypokalemia (principal); R19.7 Diarrhea, unspecified
CPT/HCPCS: 80053; 85025

== ENCOUNTER 2024-11-23 14:30 | Emergency (ER) | payer OTHER ==
[~2024-11-23] VITALS: Ht 162.6 cm; Wt 90.7 kg
[2024-11-23 14:51] VITALS: BP 143/74
[2024-11-23] MEDS ORDERED: Acetaminophen 500 MG Tab PO ONE ×2 (14:55→19:05)
[2024-11-23] MEDS ORDERED: MethylPREDNISolone Sod Succ 125 MG Vial IV ONE ×2 (14:55→19:05)
[2024-11-23] MEDS ORDERED: Albuterol 2.5 MG/3 ML VIAL INH SCH (14:55)
[2024-11-23 15:26] LABS: BASOPHILS ABSOLUTE AUTO 0.04 K/mm3 (0.00-0.23); BASOPHILS PERCENT AUTO 0 % (0-2); EOSINOPHILS ABSOLUTE AUTO 0.65 K/mm3 (0.00-0.68); EOSINOPHILS PERCENT AUTO 7 % (0-6); Hematocrit 40.8 % (33.0-51.0); Hemoglobin 14.1 g/dL (11.5-16.0); IMMATURE GRAN ABSOLUTE AUTO 0.03 K/mm3 (0.00-0.10); IMMATURE GRAN PERCENT AUTO 0 % (0-1); LYMPHOCYTES ABSOLUTE AUTO 2.33 K/mm3 (0.84-5.20); LYMPHOCYTES PERCENT AUTO 25 % (21-46); MONOCYTES ABSOLUTE AUTO 0.45 K/mm3 (0.16-1.47); MONOCYTES PERCENT AUTO 5 % (4-13); Mean Corpuscular HGB 31.9 pg (26.0-34.0); Mean Corpuscular HGB Conc 34.6 g/dL (31.5-36.5); Mean Corpuscular Volume 92 fL (80-100); Mean Platelet Volume 8.5 fL (9.1-12.4); NEUTROPHILS ABSOLUTE AUTO 5.87 K/mm3 (1.96-9.15); NEUTROPHILS PERCENT AUTO 63 % (41-73); Platelet Count 288 K/mm3 (150-400); RDW Coefficient Variation 14.4 % (11.7-14.2); RDW Standard Deviation 49.1 fL (35.1-46.3); Red Blood Cell Count 4.42 M/mm3 (3.80-5.20); White Blood Cell Count 9.37 K/mm3 (4.00-11.30)
[2024-11-23 15:47] LABS: Bun/Creatinine Ratio 19.7 (12.0-20.0); Calcium, Blood 8.8 mg/dL (8.5-10.1); Creatinine, Blood 0.71 mg/dL (0.40-1.00); Potassium, Blood 3.5 mmol/L (3.5-5.5)
[2024-11-23 16:22] LABS: Influenza A, PCR NEGATIVE (NEGATIVE); Influenza B, PCR NEGATIVE (NEGATIVE); Resp Syncytial Virus, PCR NEGATIVE (NEGATIVE); SARS-Cov-2 (COVID-19) PCR, MMC NEGATIVE (NEGATIVE)
[2024-11-23] MEDS ORDERED: PRED20 PO (20:00)
[2024-11-23] MEDS ORDERED: ACET500 PO (20:00)
== END 2024-11-23 20:06 | disposition home or self-care (01) ==
LOC: ER 14:30
PROVIDERS: Emergency Medicine
DX: J44.1 Chronic obstructive pulmonary disease with (acute) exacerbation (principal); I11.0 Hypertensive heart disease with heart failure; I50.30 Unspecified diastolic (congestive) heart failure; E03.9 Hypothyroidism, unspecified; F17.210 Nicotine dependence, cigarettes, uncomplicated; Z88.5 Allergy status to narcotic agent; Z88.2 Allergy status to sulfonamides; Z91.041 Radiographic dye allergy status; Z88.8 Allergy status to other drugs, medicaments and biological substances; Z79.890 Hormone replacement therapy; Z79.51 Long term (current) use of inhaled steroids; Z79.82 Long term (current) use of aspirin; Z79.899 Other long term (current) drug therapy
CPT/HCPCS: 0241U; 71045; 80048; 83880; 84484; 85025; 93005; 93010; 94644; 94664; 96374; 99285-25; A9270; J2919

== ENCOUNTER 2024-11-30 07:03 | Day surgery (SDC) | payer OTHER ==
[~2024-11-30] VITALS: Ht 165.1 cm; Wt 90.4 kg
[~2024-11-30 07:03] MED LIST changes: +ACET500 PO; +PRED20 PO
[2024-11-30] MEDS ORDERED: Lactated Ringer's 1,000 ML IV ONE ×2 (07:35→08:55)
[2024-11-30] MEDS ORDERED: LYRICA100 M1 (08:24)
[2024-11-30] MEDS ORDERED: ZYRTEC10 M1 (08:25)
[2024-11-30] MEDS ORDERED: CYCL10 (08:25)
[2024-11-30] MEDS ORDERED: ONDA4 (08:28)
[2024-11-30] MEDS ORDERED: propofoL 50 ML IV ONE (08:53)
--- NOTE | 2024-11-30 09:17 | NUR ---
11/30/24 0917 Carmen Christopher PT. DENIES ANY PAIN. PT. DID SAY SHE IS TIRED & FELT DIZZY, ANESTHESIA AWARE. PT. WITH COARSE LUNG SOUNDS WITH SCATTERED WHEEZES SOME CLEARING WITH COUGH. PT. DID NOT USE HER INHALERS OR NEBULIZER TODAY. PT. USUALLY USES NEBULIZER EVERYDAY. ANESTHESIA AWARE, NO ORDERS GIVEN IN PREOP.
[2024-11-30 10:20] VITALS: BP 111/76
== END 2024-11-30 10:19 | disposition home or self-care (01) ==
LOC: ORSCSDS 07:03
PROVIDERS: Internal Medicine Gastroenterology
PROC: 0DBL8ZX Excision of Transverse Colon, Via Natural or Artificial Opening Endoscopic, Diagnostic (ICD-10-PCS; principal; 2024-11-30 08:45)
PROC: 0DJ08ZZ Inspection of Upper Intestinal Tract, Via Natural or Artificial Opening Endoscopic (ICD-10-PCS; principal; 2024-11-30 08:45)
PROC: 0DBK8ZX Excision of Ascending Colon, Via Natural or Artificial Opening Endoscopic, Diagnostic (ICD-10-PCS; principal; 2024-11-30 08:45)
DX: R10.32 Left lower quadrant pain (principal); R13.10 Dysphagia, unspecified; R19.4 Change in bowel habit; D12.2 Benign neoplasm of ascending colon; D12.3 Benign neoplasm of transverse colon; K57.30 Diverticulosis of large intestine without perforation or abscess without bleeding; I10 Essential (primary) hypertension; J44.9 Chronic obstructive pulmonary disease, unspecified; K21.9 Gastro-esophageal reflux disease without esophagitis; E03.9 Hypothyroidism, unspecified; E66.9 Obesity, unspecified; Z68.33 Body mass index [BMI] 33.0-33.9, adult; I50.9 Heart failure, unspecified; F31.9 Bipolar disorder, unspecified; F17.210 Nicotine dependence, cigarettes, uncomplicated; Z79.899 Other long term (current) drug therapy
CPT/HCPCS: 88305; J2704; J7120

== ENCOUNTER 2024-12-23 08:16 | Inpatient (IN) | payer OTHER ==
[~2024-12-23] VITALS: Ht 162.6 cm; Wt 90.6 kg
[~2024-12-23 08:16] MED LIST changes: +CYCL10; +LYRICA100 M1 PO; +ONDA4; +ZYRTEC10 M1
[2024-12-23] MEDS ORDERED: Ipratropium/Albuterol SulF 2.5-0.5MG/3 ML Amp INH ONE (08:25)
[2024-12-23] MEDS ORDERED: MethylPREDNISolone Sod Succ 125 MG Vial IV ONE (08:25)
[2024-12-23] MEDS ORDERED: Albuterol 2.5 MG/3 ML VIAL INH SCH ×2 (08:25→11:00)
[2024-12-23 08:37] LABS: BASOPHILS ABSOLUTE AUTO 0.05 K/mm3 (0.00-0.23); BASOPHILS PERCENT AUTO 1 % (0-2); EOSINOPHILS ABSOLUTE AUTO 0.48 K/mm3 (0.00-0.68); EOSINOPHILS PERCENT AUTO 8 % (0-6); Hemoglobin 14.4 g/dL (11.5-16.0); IMMATURE GRAN ABSOLUTE AUTO 0.03 K/mm3 (0.00-0.10); IMMATURE GRAN PERCENT AUTO 1 % (0-1); LYMPHOCYTES ABSOLUTE AUTO 1.68 K/mm3 (0.84-5.20); LYMPHOCYTES PERCENT AUTO 27 % (21-46); MONOCYTES ABSOLUTE AUTO 0.41 K/mm3 (0.16-1.47); MONOCYTES PERCENT AUTO 7 % (4-13); Mean Corpuscular HGB 31.2 pg (26.0-34.0); Mean Corpuscular HGB Conc 33.5 g/dL (31.5-36.5); Mean Corpuscular Volume 93 fL (80-100); Mean Platelet Volume 8.8 fL (9.1-12.4); NEUTROPHILS PERCENT AUTO 57 % (41-73); Platelet Count 249 K/mm3 (150-400); RDW Coefficient Variation 13.8 % (11.7-14.2); RDW Standard Deviation 47.5 fL (35.1-46.3); Red Blood Cell Count 4.61 M/mm3 (3.80-5.20); White Blood Cell Count 6.15 K/mm3 (4.00-11.30)
[2024-12-23 09:04] LABS: Albumin, Blood 3.7 g/dL (3.4-5.0); Albumin/Globulin Ratio 1.2 (0.8-1.8); Bilirubin, Total 0.5 mg/dL (0.1-1.0); Bun/Creatinine Ratio 28.9 (12.0-20.0); Calcium, Blood 8.2 mg/dL (8.5-10.1); Creatinine, Blood 0.55 mg/dL (0.40-1.00); Potassium, Blood 3.6 mmol/L (3.5-5.5); Total Protein, Blood 6.7 g/dL (6.4-8.2)
[2024-12-23] MEDS ORDERED: HYDROcodone 5-APAP 325 TAB PO ONE (09:30)
[2024-12-23] MEDS ORDERED: IPRAT-ALBUT 0.5-3 ML INH (09:39)
[2024-12-23] MEDS ORDERED: METAMUCIL174 GM (09:41)
[2024-12-23] MEDS ORDERED: Doxycycline Hyclate 100 MG TAB PO ONE (11:00)
[2024-12-23] MEDS ORDERED: Metoclopramide HCl 5MG / ML 2ML Vial IV ONE (11:20)
[2024-12-23] MEDS ORDERED: NS 1,000 ML IV SCH (11:20)
[2024-12-23] MEDS ORDERED: DiphenhydrAMINE HCl 50 MG/ML 1ML Vial IV ONE (11:20)
[2024-12-23] MEDS ORDERED: Ketorolac Tromethamine 30mg Vial IV ONE (11:20)
[2024-12-23] MEDS ORDERED: Cyclobenzaprine HCl 10 MG Tab PO PRN (11:55)
[2024-12-23] MEDS ORDERED: Ipratropium/Albuterol SulF 2.5-0.5MG/3 ML Amp INH SCH (11:55)
[2024-12-23] MEDS ORDERED: Bumetanide 1 MG Tab PO SCH (12:00)
[2024-12-23] MEDS ORDERED: Azithromycin 500 MG in NS 250 ML IV ONE (12:10)
[2024-12-23 12:50] LABS: Influenza A, PCR NEGATIVE (NEGATIVE); Influenza B, PCR NEGATIVE (NEGATIVE); Resp Syncytial Virus, PCR NEGATIVE (NEGATIVE); SARS-Cov-2 (COVID-19) PCR, MMC NEGATIVE (NEGATIVE)
[2024-12-23 14:13] VITALS: BP 133/71
[2024-12-23] MEDS ORDERED: Norco 5-325 Ta1 EACH PO (14:19)
--- NOTE | 2024-12-23 14:52 | NUR ---
ADMISSION NOTE MS PORTER WAS ADMITTED TO MEDICAL UNIT AT 1404HRS FROM ER. TRANSFERED IN W/C. SEMI STEADY GAIT, SHE SAID SHE FEELS S LITTLE JITTERY AFTER THE NEBULISERS. UP TO BATHROOM AND VOIDED X2. C/O TOOTHACHE AFTER GETTING TOOTH PULLED YESTERDAY AND COLLARBONE PAIN AFTER COUGHING. PT C/O STRESS AND ANXIETY. HACKING COUGH, NO SPUTUM SEEN. ON ROOM AIR, SOB ON EXERTION. PT SAID SHE HAS SLEPT VERY LITTLE THE PAST FEW DAYS DUE TO COUGHING. SHE LIVES IN A RENTED ROOM, GETS HOME CARE 20HRS/MONTH, ASSISTANCE WITH SHOWERING, SHOPPING, CLEANING. SHE HAS BEEN TRYING TO QUIT SMOKING OVER THE PAST MONTH, SHE WOULD LIKE NICOTENE REPLACEMENT. SHE DENIES HAVING ANY TOBACCO OR CREDIT ASSISTANT WITH HER. PLACED ON TELEMETRY SINUS RHYTHM 92 PER DONOVAN ANGIO TECHNOLOGIST. BED LOW, CALL LIGHT IN REACH.
[2024-12-23] MEDS ORDERED: MethylPREDNISolone Sod Succ 125 MG Vial IV SCH (16:00)
[2024-12-23] MEDS ORDERED: Psyllium 1 EA Pack PO SCH (17:00)
--- NOTE | 2024-12-23 17:42 | NUR ---
SHIFT SUMMARY SEE ADMIT NOTE. TELEPHONE ORDER FOR NICORETTE GUM 2MG Q4-8HRS PRN AND NORCO 5/325 1 TAB Q6HRS PRN. READ BACK DONE AND ORDERS ENTERED INTO [employer]. PT C/O HEADACHE S/P TOOTH PULLED 12/22.
[2024-12-23] MEDS ORDERED: Nicotine Polacrilex 2 MG Gum PO PRN (17:45)
[2024-12-23] MEDS ORDERED: HYDROcodone 5-APAP 325 TAB PO PRN (17:45)
[2024-12-23] MEDS ORDERED: Acetaminophen 500 MG Tab PO PRN (18:45)
[2024-12-23] MEDS ORDERED: Lidocaine 4% 1 Patch TOP PRN (19:05)
[2024-12-23 19:29] VITALS: BP 149/93
[2024-12-23] MEDS ORDERED: Famotidine 20 MG Tab PO SCH (21:00)
[2024-12-23] MEDS ORDERED: Docusate Sodium 100 MG Cap PO SCH (21:00)
[2024-12-24] VITALS (7 sets, daily range): BP systolic 105–144; BP diastolic 58–79
[2024-12-24 04:34] LABS: BASOPHILS ABSOLUTE AUTO 0.01 K/mm3 (0.00-0.23); BASOPHILS PERCENT AUTO 0 % (0-2); EOSINOPHILS PERCENT AUTO 0 % (0-6); Hematocrit 40.7 % (33.0-51.0); Hemoglobin 13.8 g/dL (11.5-16.0); IMMATURE GRAN ABSOLUTE AUTO 0.04 K/mm3 (0.00-0.10); IMMATURE GRAN PERCENT AUTO 1 % (0-1); LYMPHOCYTES ABSOLUTE AUTO 0.62 K/mm3 (0.84-5.20); LYMPHOCYTES PERCENT AUTO 8 % (21-46); MONOCYTES ABSOLUTE AUTO 0.06 K/mm3 (0.16-1.47); MONOCYTES PERCENT AUTO 1 % (4-13); Mean Corpuscular HGB 31.1 pg (26.0-34.0); Mean Corpuscular HGB Conc 33.9 g/dL (31.5-36.5); Mean Corpuscular Volume 92 fL (80-100); Mean Platelet Volume 8.9 fL (9.1-12.4); NEUTROPHILS ABSOLUTE AUTO 7.46 K/mm3 (1.96-9.15); NEUTROPHILS PERCENT AUTO 91 % (41-73); Platelet Count 291 K/mm3 (150-400); RDW Coefficient Variation 13.7 % (11.7-14.2); RDW Standard Deviation 46.7 fL (35.1-46.3); Red Blood Cell Count 4.44 M/mm3 (3.80-5.20); White Blood Cell Count 8.19 K/mm3 (4.00-11.30)
[2024-12-24 04:52] LABS: Albumin, Blood 3.6 g/dL (3.4-5.0); Albumin/Globulin Ratio 1.1 (0.8-1.8); Bilirubin, Total 0.3 mg/dL (0.1-1.0); Bun/Creatinine Ratio 26.7 (12.0-20.0); Calcium, Blood 8.9 mg/dL (8.5-10.1); Creatinine, Blood 0.6 mg/dL (0.40-1.00); Globulin, Blood 3.2 g/dL (2.2-4.0); Potassium, Blood 3.8 mmol/L (3.5-5.5); Total Protein, Blood 6.8 g/dL (6.4-8.2)
--- NOTE | 2024-12-24 04:58 | NUR ---
HOSPITALIST CONTACT CALL FROM [facility] TO REPORT QTC ELONGATION. UPON ASSESSMENT FOUND PT JUST WAKING FROM SLEEP, DIAPHORETIC, AND C/O OF MILD UPPER LEFT CP. PERFORMED EKG CONFIRMING QTC ELONGATION. CALLED HOSPITALIST TO NOTIFY. SPOKE TO DR CLOUD. DR ORDER FOR MORNING LABS OF CMP/CBC BE ORDERED EARLY. DR DID NOT WANT A TROPONIN. DR TO REVIEW PT CHART AND ADIVSE OF ANY NEW ORDERS. EDUCATED PT TO REPORT ANY CHANGES OR WORSENING OF SYMPTOMS.
[2024-12-24] MEDS ORDERED: Levothyroxine Sodium 0.05 MG Tab PO SCH (06:00)
--- NOTE | 2024-12-24 06:37 | NUR ---
TRAVEL CONSULTANT SUMMARY PT A/OX4. ABLE TO MAKE NEEDS KNOWN. PT ON TELE. HAD CHANGES TO QTC--ELONGATION NOTES. SEE PREVIOUS NURSE NOTE RE HOSPITALIST CONTACT. PT CONTINUES TO C/O OF MOUTH PAIN AND HEAD ACHE. NORCO GIVEN WHEN AVAILABLE. PT ASSISTED ON MULTIPLE WALKS USING FWW WALKER. PT SOB WITH ACTIVITY, O2 SATS WNL. EDUCATION PT ON FALL PREVENTION. CALL LIGHT ACCESSIBLE. POST EKG PT HAS HAS MILD CP IN UPPER LEFT CHEST. PT STATES TENDER AND COMES/GOES. PT REMAINS ON TELE FOR MONITORING. REGULAR INTERVAL ROUNDING T/O SHIFT.
[2024-12-24] MEDS ORDERED: Enoxaparin 40 MG/0.4 ML SYR SC SCH (09:00)
[2024-12-24] MEDS ORDERED: Potassium Citrate 5 MEQ TABCR PO SCH (09:00)
[2024-12-24] MEDS ORDERED: Pregabalin 50 MG Capsule PO SCH (09:00)
[2024-12-24] MEDS ORDERED: DULoxetine HCL 60 MG Capsule DR PO SCH (09:00)
[2024-12-24] MEDS ORDERED: Azithromycin 250 MG Tab PO SCH (09:00)
[2024-12-24] MEDS ORDERED: Aspirin 81 MG Chew PO SCH (09:00)
[2024-12-24] MEDS ORDERED: Loratadine 10 MG Tab PO SCH (09:00)
[2024-12-24] MEDS ORDERED: TRELEGY ELLIPT1 EACH INH (10:15)
[2024-12-24] MEDS ORDERED: ANORO ELLIPTA1 EACH INH (10:17)
[2024-12-24] MEDS ORDERED: TRELEGY INH SCH (11:30)
--- NOTE | 2024-12-24 11:56 | NUR ---
MD CALL MS PORTER IS VERY TALKATIVE, TEARFUL, C/O FEELING SRESSED AND ANXIOUS. SHE SAID SHE FEELS LIKE SHE WOULD BENEFIT FROM AN ANTI-ANXIETY MEDICATION. DR BARKER NOTIFIED.
[2024-12-24] MEDS ORDERED: HyDROXyzine HCl 25 MG Tab PO PRN (12:10)
[2024-12-24] MEDS ORDERED: VILANTEROL INH SCH (16:20)
[2024-12-24] MEDS ORDERED: UMECLIDINIUM INH SCH (16:20)
--- NOTE | 2024-12-24 17:35 | NUR ---
SHIFT SUMMARY MS PORTER IS ON TELEMETRY, SR, 1ST DEGREE AVB, NO CALLS FROM [employer]. SHE HAS C/O ANXIETY TODAY, CENTRAL CHEST PAIN THAT LASTS SECONDS, VERY TALKATIVE, ANTSY/FIDGETTY/NEEDING TO MOVE. SHE SAID SHE FEELS BETTER AFTER ATARAX, MORE SETTLED, NO FURTHER C/O SHORT LASTING CP. WALKING THE HALLS, STEADY GAIT WITH WALKER, INDEPENDENT. NO C/O SOB WHEN WALKING, TALKING IN FULL SENTENCES. INTERMITTENT HEADACHE. TOOTH REMOVAL YESTERDAY. GIVEN PAIN MEDS AND ICE PACK WHICH HELPED. BED LOW, CALL LIGHT IN REACH.
[2024-12-25 02:55] VITALS: BP 129/74
--- NOTE | 2024-12-25 04:52 | NUR ---
SHIFT SUMMARY: PT AOX4, IND IN ROOM, CALLS APPROPRIATELY AND COOPERATIVE IN CARE. SATTING WELL ON RA. DENIES CP AND SOB. TOLERATING MEDICATIONS WELL. IS ANXIOUS ABOUT VARIETY OF TOPICS AND ENDORSING SOME PAIN, MEDICATED PER EMR. PT GOT SOME SLEEP AND THEN WOKE UP AND PROCEEDED TO PACE ROOM AND [place]. NO ACUTE EVENTS OVERNIGHT. PT IN BED RESTING, BED IN LOWEST POSITION, CALL LIGHT IN REACH. CONTINUING CARE.
[2024-12-25 07:52] VITALS: BP 109/66
[2024-12-25] MEDS ORDERED: PredniSONE 20 MG Tab PO SCH (09:00)
[2024-12-25] MEDS ORDERED: Albuterol 2.5 MG/3 ML VIAL INH PRN (10:15)
[2024-12-25] MEDS ORDERED: AZIT250 PO (10:28)
[2024-12-25] MEDS ORDERED: COLACE100 MG PO (10:28)
[2024-12-25] MEDS ORDERED: NICOTINE GUM2 M1 PO (10:31)
[2024-12-25] MEDS ORDERED: PRED20 PO (10:32)
--- NOTE | 2024-12-25 11:17 | NUR ---
DC SUMMARY PT DC THIS SHIFT. DC INSTRUCTION GONE OVER WITH PT WHOM STATED UNDERSTANDING. PT NOTIFIED OF MEDS BEEN CALLED INTO [facility] THEY ARE THE ONLY PHARMACY OPEN TODAY. PT STATED UNDERSTANDING. PT WAS ESCORTED TO [facility] VIA WHEELCHAIR BY SHAREPOINT ARCHITECT.
== END 2024-12-25 11:22 | disposition home or self-care (01) | DRG 191 ==
LOC: ER 08:16 → MEDS 11:51
PROVIDERS: Internal Medicine; Student in an Organized Health Care Education/Training Program; ADMIT Internal Medicine
DX: J44.1 Chronic obstructive pulmonary disease with (acute) exacerbation (principal); I50.32 Chronic diastolic (congestive) heart failure; K58.9 Irritable bowel syndrome, unspecified; E03.9 Hypothyroidism, unspecified; I27.20 Pulmonary hypertension, unspecified; I11.0 Hypertensive heart disease with heart failure; Z96.651 Presence of right artificial knee joint; Z96.642 Presence of left artificial hip joint; F17.210 Nicotine dependence, cigarettes, uncomplicated; Z60.2 Problems related to living alone; K76.0 Fatty (change of) liver, not elsewhere classified; F41.8 Other specified anxiety disorders; Z87.19 Personal history of other diseases of the digestive system; Z98.1 Arthrodesis status; Z88.5 Allergy status to narcotic agent; Z88.2 Allergy status to sulfonamides; Z91.018 Allergy to other foods; Z91.041 Radiographic dye allergy status; Z88.8 Allergy status to other drugs, medicaments and biological substances; Z79.890 Hormone replacement therapy; Z79.899 Other long term (current) drug therapy; Z79.82 Long term (current) use of aspirin; Z90.710 Acquired absence of both cervix and uterus; Z90.49 Acquired absence of other specified parts of digestive tract; Z79.891 Long term (current) use of opiate analgesic; Z90.89 Acquired absence of other organs
CPT/HCPCS: 0241U; 36415; 71045; 80053; 82947; 83735; 83880; 85025; 93005; 93010; 94640; 94644; 94645; 94664; 94760; 94762; 96374; 96375; 99285-25; A9270; J0456; J1200; J1650; J1885; J2765; J2919; J7030; J7050; J7512